=== PATIENT | male | born 1935 | race Caucasian/White ===

== ENCOUNTER 2017-03-15 21:56 | Observation (INO) ==
--- NOTE | 2017-03-15 22:03 | Emergency Department Note ---
Disposition Clinical Impression: Pneumonia, Elevated troponin, Hypoxemia, Frail elderly, Bone lesion, Hyperkalemia Disposition: Admitted As Inpatient Referrals: NO,PCP [Non-Partnered Physician] - Forms: ED Satisfaction Letter General Adult HPI - General Chief complaint: ED Shortness of Breath/Dyspnea Stated complaint: GEN Time Seen by Provider: 03/15/17 22:03 - History of Present Illness HPI Narrative: 81-year-old male reports emergency department complaining of shortness of breath. He was recently seen in the emergency department and signed out AGAINST MEDICAL ADVICE, he had a significantly elevated troponin as well as what appeared to be pneumonitis. The patient reports that he finished his antibiotics, he became more short of breath today EMS was notified and noticed the patient's oxygen saturation was in the 80s on arrival. The patient has home oxygen available but does not wear it all the time and only uses it when he short of breath per his direct report. 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 There is no history of acute dysarthria or confusion. No history of fall or injury. No change in his his neurologic status reported, there is no history of difficulty moving his right upper right lower extremity. There is no history of acute back pain vomiting diarrhea or abdominal pain. The patient is not known to be anticoagulated. EMS did not give the patient a breathing treatment they report when they placed oxygen on his oxygen saturations came up. The patient is not describing chest pain or acute leg swelling. No history of coughing up blood or passing out. - Related Data Home Medications Medication Instructions Recorded Confirmed Aspirin 81 mg PO DAILY 02/27/17 02/27/17 Docusate Sodium [Dok] 100 mg PO BID PRN 02/27/17 02/27/17 Hydroxyzine HCl 25 mg PO BID PRN 02/27/17 02/27/17 Losartan [Cozaar] 25 mg PO DAILY 02/27/17 02/27/17 Polyethylene Glycol 3350 17 gm PO DAILY PRN 02/27/17 02/27/17 [Smoothlax] Propranolol HCl [Innopran Xl] 80 mg PO BID 02/27/17 02/27/17 Simvastatin [Zocor] 40 mg PO HS 02/27/17 02/27/17 Tolnaftate [Antifungal Cream] 1 appl TP BID PRN 02/27/17 02/27/17 Torsemide [Demadex] 10 mg PO QAM PRN 02/27/17 02/27/17 Previous Rx's Medication Instructions Recorded Levofloxacin [Levaquin] 500 mg PO DAILY #6 tablet 02/27/17 Allergies Allergy/AdvReac Type Severity Reaction Status Date / Time Sulfa (Sulfonamide Allergy Hives Verified 03/15/17 22:04 Antibiotics) All systems ED: reviewed and negative except as stated. Past Medical History - Past Medical History Medical history: Reports: asthma, CVA, hypertension Psychiatric history: Reports: no psych history - Social History Smoking Status: Current every day smoker Smokeless Tobacco Status: No Alcohol use: Reports: none Drug use: Reports: none Physical Exam - General Limitations: no limitations General appearance: alert, in no apparent distress - Head Head exam: atraumatic, normocephalic, normal inspection - Eye Eye exam: Present: normal appearance, PERRL, EOMI - ENT ENT exam: normal exam, normal oropharynx, mucous membranes moist, TM's normal bilaterally, normal external ear exam - Neck Neck exam: Present: normal inspection, full ROM, trachea midline. Absent: tenderness - Chest Chest inspection: Present: symmetric chest wall rise. Absent: tenderness - Respiratory Respiratory exam: Present: prolonged expiratory phase. Absent: normal lung sounds bilaterally, respiratory distress, accessory muscle use - Cardiovascular Cardiovascular exam: Present: regular rate, normal rhythm, normal heart sounds - Abdominal Exam Abdominal exam: Present: soft, Non-Tender, normal bowel sounds. Absent: tenderness, distention, guarding, rebound, rigidity, pulsatile mass - Extremities Exam Extremities exam: Present: full ROM, normal capillary refill, other (Chronic venous stasis changes lower extremities). Absent: tenderness, pedal edema, joint swelling, calf tenderness - Expanded Lower Extremity Exam Hip/Pelvis exam: Present: full ROM. Absent: tenderness Upper leg exam: Present: full ROM. Absent: tenderness Knee exam: Present: full ROM. Absent: tenderness Lower leg exam: Present: full ROM. Absent: tenderness Neurovascular/Tendon exam: Present: normal capillary refill. Absent: motor deficit, sensory deficit, tendon deficit, extremity cold to touch, pallor - Back Exam Back exam: Present: full ROM. Absent: tenderness, CVA tenderness (R), CVA tenderness (L), vertebral tenderness - Neurological Exam Neurological exam: Present: alert, oriented X3, CN II-XII intact, motor sensory deficit (Left upper and left lower extremity defects chronic in nature per patient and family, History of CVA) - Psychiatric Psychiatric exam: Present: normal affect, normal mood - Skin Skin exam: Present: warm, dry, intact, normal color. Absent: rash, cyanosis, diaphoresis, erythema, pallor, mottled Course Vital Signs Temperature 98.9 F 03/15/17 21:57 Pulse Rate 61 03/15/17 21:57 Respiratory Rate 16 03/15/17 21:57 Blood Pressure 130/69 03/15/17 21:57 O2 Sat by Pulse Oximetry 94 03/15/17 21:57 Temperature 98.9 F 03/15/17 21:57 Pulse Rate 61 03/15/17 21:57 Respiratory Rate 16 03/15/17 21:57 Blood Pressure 130/69 03/15/17 21:57 O2 Sat by Pulse Oximetry 94 03/15/17 21:57 Oxygen Delivery Oxygen Delivery Nasal Cannula Medical Decision Making - [facility] Narrative Medical decision making narrative: He patient is elderly, he was apparently hypoxemic at his home with a low oxygen saturation the 80s. The patient demonstrates worsening pulmonary disease and there is a description of bony lesion. Further evaluation radiographically as recommended. The patient has an elevated white count but is not tachycardic or febrile. He does not necessarily sepsis criteria IV fluid and IV antibiotics were ordered as well as steroids and breathing medication and aspirin. He has a slight elevation in his troponin which is improved from previous. His EKG is nonacute. Based on his age, worsening lung disease, concerns for potential other Lung or bony pathology, hypoxemia, comorbid neurologic defects/chronic, elevated troponin, and second presentation to the emergency department, I thought it be appropriate to admit the patient to the hospital. I reviewed the case with the hospitalist on-call. - Lab Data Lab results reviewed: Yes I reviewed the patient's lab results. Result diagrams: 03/15/17 22:35 03/15/17 22:35 Lab Results 03/15/17 03/15/17 03/15/17 Range/Units :27 22:35 22:35 WBC 11.2 H (4.3-11.1) K/mcL RBC 5.03 (4.19-5.50) M/mcL Hgb 14.2 (12.9-16.9) g/dL Hct 44.9 (37.5-50.1) % MCV 89.3 (83.0-100.0) fL MCH 28.2 (28.0-33.3) pg MCHC 31.6 (31.6-35.5) g/dL RDW 13.6 (11.5-14.5) % Plt Count 204 (140-400) K/mcL MPV 10.4 (9.4-12.4) fL Immature Gran % 0.8 (0-4) % Seg Neutrophils % 75.0 % Lymphocytes % 12.7 % Monocytes % 8.6 % Eosinophils % 2.2 % Basophils % 0.7 % Neutrophils # 8.4 (1.6-8.9) K/mcL Lymphocytes # 1.4 (0.6-4.6) K/mcL Monocytes # 1.0 (0.0-1.3) K/mcL Eosinophils # 0.3 (0.0-0.6) K/mcL Basophils # 0.1 (0.0-0.2) K/mcL Immature Plt Fraction 6.5 H (1.1-6.1) % PT 10.3 (9.4-12.1) Seconds INR 1.0 APTT 29.7 (26.0-36.0) Seconds Sodium 137 (136-145) mEq/L Potassium 4.8 H (3.5-4.5) mEq/L Chloride 100 (98-109) mEq/L Carbon Dioxide 32 H (19-29) mEq/L BUN 20 (8-26) mg/dL Creatinine 1.19 (0.72-1.25) mg/dL Est GFR ( Amer) > 60 (> 60) Est GFR (Non-Af Amer) 59 L (> 60) BUN/Creatinine Ratio 17 (6-26) Glucose 118 H (70-99) mg/dL Calculated Osmolality 288 (280-300) Lactic Acid (0.5-2.2) mmol/L Calcium 8.4 L (8.6-10.8) mg/dL Total Bilirubin 0.5 (0.2-1.2) mg/dL Direct Bilirubin 0.3 (0.0-0.5) mg/dL Indirect Bilirubin 0.2 (0.0-1.2) mg/dL AST 29 (5-34) Units/L ALT 32 (0-55) Units/L Alkaline Phosphatase 110 (38-126) Units/L Troponin I (0-0.03) ng/mL C-Reactive Protein (Less than 5) mg/L B-Natriuretic Peptide (0-100) pg/mL Serum Total Protein 6.3 (6.0-8.3) g/dL Albumin 2.6 L (3.5-5.0) g/dL Globulin 3.7 H (2.4-3.5) g/dL Albumin/Globulin Ratio 0.7 L (1.1-2.2) 03/15/17 03/15/17 03/15/17 Range/Units 22:35 22:35 22:35 WBC (4.3-11.1) K/mcL RBC (4.19-5.50) M/mcL Hgb (12.9-16.9) g/dL Hct (37.5-50.1) % MCV (83.0-100.0) fL MCH (28.0-33.3) pg MCHC (31.6-35.5) g/dL RDW (11.5-14.5) % Plt Count (140-400) K/mcL MPV (9.4-12.4) fL Immature Gran % (0-4) % Seg Neutrophils % % Lymphocytes % % Monocytes % % Eosinophils % % Basophils % % Neutrophils # (1.6-8.9) K/mcL Lymphocytes # (0.6-4.6) K/mcL Monocytes # (0.0-1.3) K/mcL Eosinophils # (0.0-0.6) K/mcL Basophils # (0.0-0.2) K/mcL Immature Plt Fraction (1.1-6.1) % PT (9.4-12.1) Seconds INR APTT (26.0-36.0) Seconds Sodium (136-145) mEq/L Potassium (3.5-4.5) mEq/L Chloride (98-109) mEq/L Carbon Dioxide (19-29) mEq/L BUN (8-26) mg/dL Creatinine (0.72-1.25) mg/dL Est GFR ( Amer) (> 60) Est GFR (Non-Af Amer) (> 60) BUN/Creatinine Ratio (6-26) Glucose (70-99) mg/dL Calculated Osmolality (280-300) Lactic Acid 0.9 (0.5-2.2) mmol/L Calcium (8.6-10.8) mg/dL Total Bilirubin (0.2-1.2) mg/dL Direct Bilirubin (0.0-0.5) mg/dL Indirect Bilirubin (0.0-1.2) mg/dL AST (5-34) Units/L ALT (0-55) Units/L Alkaline Phosphatase (38-126) Units/L Troponin I 0.05 H* (0-0.03) ng/mL C-Reactive Protein (Less than 5) mg/L B-Natriuretic Peptide 110 H (0-100) pg/mL Serum Total Protein (6.0-8.3) g/dL Albumin (3.5-5.0) g/dL Globulin (2.4-3.5) g/dL Albumin/Globulin Ratio (1.1-2.2) 03/15/17 Range/Units 22:35 WBC (4.3-11.1) K/mcL RBC (4.19-5.50) M/mcL Hgb (12.9-16.9) g/dL Hct (37.5-50.1) % MCV (83.0-100.0) fL MCH (28.0-33.3) pg MCHC (31.6-35.5) g/dL RDW (11.5-14.5) % Plt Count (140-400) K/mcL MPV (9.4-12.4) fL Immature Gran % (0-4) % Seg Neutrophils % % Lymphocytes % % Monocytes % % Eosinophils % % Basophils % % Neutrophils # (1.6-8.9) K/mcL Lymphocytes # (0.6-4.6) K/mcL Monocytes # (0.0-1.3) K/mcL Eosinophils # (0.0-0.6) K/mcL Basophils # (0.0-0.2) K/mcL Immature Plt Fraction (1.1-6.1) % PT (9.4-12.1) Seconds INR APTT (26.0-36.0) Seconds Sodium (136-145) mEq/L Potassium (3.5-4.5) mEq/L Chloride (98-109) mEq/L Carbon Dioxide (19-29) mEq/L BUN (8-26) mg/dL Creatinine (0.72-1.25) mg/dL Est GFR ( Amer) (> 60) Est GFR (Non-Af Amer) (> 60) BUN/Creatinine Ratio (6-26) Glucose (70-99) mg/dL Calculated Osmolality (280-300) Lactic Acid (0.5-2.2) mmol/L Calcium (8.6-10.8) mg/dL Total Bilirubin (0.2-1.2) mg/dL Direct Bilirubin (0.0-0.5) mg/dL Indirect Bilirubin (0.0-1.2) mg/dL AST (5-34) Units/L ALT (0-55) Units/L Alkaline Phosphatase (38-126) Units/L Troponin I (0-0.03) ng/mL C-Reactive Protein 10 H (Less than 5) mg/L B-Natriuretic Peptide (0-100) pg/mL Serum Total Protein (6.0-8.3) g/dL Albumin (3.5-5.0) g/dL Globulin (2.4-3.5) g/dL Albumin/Globulin Ratio (1.1-2.2) - Radiology Data Radiology results reviewed: Yes I reviewed the patient's radiology results.
[2017-03-15] MEDS ORDERED: methylPREDNISolone 125 MG/2 ML VIAL IVP ONE (22:35)
[2017-03-15] MEDS ORDERED: Ipratropium/Albuterol Neb 3 ML IH ONE (22:36)
[2017-03-15 22:57] LABS: Basophils # 0.1 K/mcL (0.0-0.2); Basophils % 0.7 %; Eosinophils # 0.3 K/mcL (0.0-0.6); Eosinophils % 2.2 %; Hematocrit 44.9 % (37.5-50.1); Hemoglobin 14.2 g/dL (12.9-16.9); Immature Granulocytes % 0.8 % (0-4); Immature Platelets 6.5 % (1.1-6.1); Lymphocytes # 1.4 K/mcL (0.6-4.6); Lymphocytes % 12.7 %; Mean Corpuscular HGB Conc 31.6 g/dL (31.6-35.5); Mean Corpuscular Hemoglobin 28.2 pg (28.0-33.3); Mean Corpuscular Volume 89.3 fL (83.0-100.0); Mean Platelet Volume 10.4 fL (9.4-12.4); Monocytes % 8.6 %; Neutrophils # 8.4 K/mcL (1.6-8.9); Platelet Count 204 K/mcL (140-400); Red Blood Count 5.03 M/mcL (4.19-5.50); Red Cell Distribution Width 13.6 % (11.5-14.5)
[2017-03-15 22:59] LABS: Prothrombin Time 10.3 Seconds (9.4-12.1)
[2017-03-15 23:01] LABS: Activated Partial Thrombo Time 29.7 Seconds (26.0-36.0)
[2017-03-15 23:13] LABS: Alanine Aminotransferase 32 Units/L (0-55); Albumin 2.6 g/dL (3.5-5.0); Albumin/Globulin Ratio 0.7 (1.1-2.2); Alkaline Phosphatase 110 Units/L (38-126); Aspartate Amino Transferase 29 Units/L (5-34); BUN/Creatinine Ratio 17 (6-26); Bilirubin,Direct 0.3 mg/dL (0.0-0.5); Bilirubin,Indirect 0.2 mg/dL (0.0-1.2); Bilirubin,Total 0.5 mg/dL (0.2-1.2); Blood Urea Nitrogen 20 mg/dL (8-26); Calcium 8.4 mg/dL (8.6-10.8); Carbon Dioxide 32 mEq/L (19-29); Chloride 100 mEq/L (98-109); Globulin 3.7 g/dL (2.4-3.5); Glucose 118 mg/dL (70-99); Osmolality,Calculated 288 (280-300); Potassium 4.8 mEq/L (3.5-4.5); Sodium 137 mEq/L (136-145); Total Protein 6.3 g/dL (6.0-8.3); eGFR For African Americans > 60 (> 60); eGFR For Non-African Americans 59 (> 60)
[2017-03-15] MEDS ORDERED: Aspirin 325 MG TABLET PO ONE (23:39)
[2017-03-16] MEDS ORDERED: Famotidine 20 MG/2 ML VIAL IVP ONE (00:09)
[2017-03-16] MEDS ORDERED: Levofloxacin 750 MG/150 ML 750 MG/150 ML BAG IVPB ONE (00:10)
[2017-03-16] MEDS ORDERED: 0.9 % Sodium Chloride 1,000 ML IVC ONE (00:30)
--- NOTE | 2017-03-16 01:15 | Internal Med History&Physical ---
<Quinn Field - Last Filed: 03/16/17 04:45> Date of Encounter: 03/16/17 Time of Encounter: 01:15 Assessment and Plan (1) Acute respiratory failure Current visit: Yes Status: Acute -see below -Patient resting comfortably in bed. Feels back at baseline after duoneb/oxygen -Patient did get dose of abx, steroids in ED. PLan -Incentive spirometry -Duoneb scheduled -Continue NC. Keep oxygen >90% Qualifiers: Respiratory failure complication: hypoxia Qualified Code(s): J96.01 - Acute respiratory failure with hypoxia (2) CHF exacerbation Current visit: Yes Status: Acute CHF vs pneumonia -Patient has crackles and diminished breath sounds. Current smoker. No LE pitting edema because patient is bedbound the past 4 years. There is mild sacral edema. -CXR shows worsening opacities, pneumonia vs effusion -Most likely CHF:Patient has non productive cough, no F/N/V/sick contacts. Not tachy, WBC 11.2. Symptoms improved with oxygen and duoneb. -Denies previous ECHO. Rheumatic fever x 2 -Will get procal. If elevated, may be inflammatory process, such as pneumonia, contributing to CHF. -Will start lasix -Patient states he is going to leave AMA tomorrow. Explained to patient its important to stay and be treated. present in room. Plan -Procal, ECHO, Lasix -Don't give IV fluids -Normal diet Qualifiers: Congestive heart failure type: unspecified congestive heart failure type Qualified Code(s): I50.9 - Heart failure, unspecified (3) Hyperkalemia Current visit: Yes Status: Acute -Possibly due to hemolysis. -Will redraw and evaluate. (4) Elevated troponin Current visit: Yes Status: Acute -Trending down from last admission. However, will get one more to evaluate. -Patient denies CP, previous history of stent, HI. (5) Asthma Current visit: Yes Status: Chronic will order duoneb scheduled Qualifiers: Asthma severity: unspecified severity Asthma complication type: uncomplicated Qualified Code(s): J45.909 - Unspecified asthma, uncomplicated (6) Hypertension Current visit: Yes Status: Acute will restart home medications Qualifiers: Hypertension type: unspecified secondary hypertension Qualified Code(s): I15.9 - Secondary hypertension, unspecified; I15 - Secondary hypertension (7) Frail elderly Current visit: Yes Status: Acute Internal Medicine - H&P: HPI Chief complaint: SOB Admitted From: Emergency Dept Plans for Post Hospital Care: Home History of present illness: Mr. Alegria is a pleasant 81 year old male, PMH Asthma, CVA, HTN (denies COPD, CHF), admitted for shortness of breath. Patient left AMA earlier this month because he didn't want to be admitted for pneumonia, discharged home with Levaquin mg for 6 days. He completed his abx and felt better. A few days ago, patient started getting more SOB and developed a non productive cough. took patients O2 and was 80%. Squad called and placed patient on oxygen and gave a breathing treatment. Patient's symptoms improved. Currently, patient feels back at baseline. Still has non productive cough. Denies N/V/F/abdominal pain. Did have diarrhea yesterday, but no longer does. States that he would like to go home now and plans to leave AMA tomorrow. at bedside. Code status discussed. Does NOT want to be temporarily intubated at anypoint. He is not ambulatory nor uses a wheelchair due to back pain/previous back surgery 4 years ago. rheumatic fever x 2 Past Med Surg Social Fam HX - Past Medical History Medical history: asthma, CVA, hypertension, other (rheumatic fever x 2) Psychiatric history: no psych history - Past Surgical History Surgical History: other (lumbar x 2) - Social History Smoking Status: Current every day smoker Smokeless Tobacco Status: No Alcohol use: none Drug use: none - Additional Family History Additional family history: Adopted. No contact with family. Internal Medicine - H&P: Meds Aspirin 81 mg PO DAILY 02/27/17 [History] Hydroxyzine HCl 25 mg PO BID PRN 02/27/17 [History] Losartan [Cozaar] 25 mg PO DAILY 02/27/17 [History] Propranolol HCl [Innopran Xl] 80 mg PO BID 02/27/17 [History] Simvastatin [Zocor] 40 mg PO HS 02/27/17 [History] Albuterol Neb [Proventil Neb] 2.5 mg IH TID PRN 03/16/17 [History] Docusate [Colace] 100 mg PO BID PRN 03/16/17 [History] Oxygen 1 each .ROUTE AD 03/16/17 [History] Tolnaftate [Anti-Fungal] 1 appl TP DAILY PRN 03/16/17 [History] Torsemide [Demadex] 10 mg PO QAM PRN 03/16/17 [History] Allergies Sulfa (Sulfonamide Antibiotics) Allergy (Verified 03/15/17 22:04) Hives All Systems PM: A 10-system review of systems was performed and is negative for pertinent findings except as documented above in the HPI. - Constitutional Constitutional: no chills, no fever(s), no night sweats - Cardiovascular Cardiovascular ROS IM: no chest pain, no diaphoresis, no dyspnea, no lightheadedness, no palpitations, no syncope - Respiratory Respiratory: cough, no hemoptysis, no pain with cough - Gastrointestinal Gastrointestinal: no abdominal pain, no diarrhea, no hematemesis, no hematochezia, no melena, no nausea, no vomiting - Neurological Neurological ROS: no confusion, no convulsions, no focal weakness, no numbness, no tingling, no tremor(s) - Constitutional Vitals: Temp Pulse Resp BP Pulse Ox 98.9 F 61 16 104/50 96 03/15/17 21:57 03/16/17 00:28 03/16/17 01:10 03/16/17 01:10 03/16/17 00:37 General appearance: Present: mild distress, A&O X 3 - Respiratory Respiratory exam: Present: decreased breath sounds, rhonchi, wheezes - Cardiovascular Cardiovascular exam: Present: irregular rhythm. Absent: diastolic murmur, systolic murmur - GI/Abdominal GI/Abdominal exam: Present: normal bowel sounds, soft, no peritoneal signs. Absent: distended, tenderness - Neurological Exam Neurological exam: Present: oriented X3 - Psychiatric Psychiatric exam: Present: normal affect, normal mood - Skin Skin exam: Absent: normal color Additional comments: toe fungus? thin skin, dry, purple "spots". Discolor (yellow, brown),Unhealthy looking skin. No edema in legs. - Other Additional findings: -Mild sacral edema Internal Med - H&P Results - Labs CBC & Chem 7: 03/15/17 22:35 03/15/17 22:35 <Iván Garcia - Last Filed: 03/16/17 19:18> Date of Encounter: 03/16/17 Internal Medicine - H&P: HPI History of present illness: Mr. Alegria is a 81 year old male All Systems PM: A 10-system review of systems was performed and is negative for pertinent findings except as documented above in the HPI. - Constitutional Vitals: Temp Pulse Resp BP Pulse Ox 97.7 F 62 16 151/83 94 03/16/17 19:00 03/16/17 19:00 03/16/17 19:00 03/16/17 19:00 03/16/17 19:00 - Head Head exam: Present: atraumatic, normocephalic - Eye Eye exam: Present: EOMI. Absent: conjunctival injection, conjuntiva pink Pupils: Present: PERRL - Neurological Exam Neurological exam: Present: CN II-XII intact, no focal deficits Internal Med - H&P Results - Labs CBC & Chem 7: 03/16/17 04:27 03/16/17 04:27 Labs: Short CBC 03/16/17 Range/Units 04:27 WBC 10.6 (4.3-11.1) K/mcL Hgb 13.7 (12.9-16.9) g/dL Hct 43.4 (37.5-50.1) % Plt Count 164 (140-400) K/mcL Neutrophils # 9.5 H (1.6-8.9) K/mcL BMP 03/16/17 04:27 Sodium 138 Potassium 5.1 H Chloride 104 Carbon Dioxide 27 BUN 18 Creatinine 1.07 Glucose 142 H Calcium 8.0 L Cardiac Enzymes 03/16/17 Range/Units 04:27 Troponin I 0.04 H* (0-0.03) ng/mL - EKG Data -: EKG Interpreted by Myself - Diagnostic Studies Chest x-ray Status: image reviewed by me - Attending Attestation I personally interviewed and examined this patient and my medical decision- making was reviewed with the Resident Physician. I agree with the documented findings, disposition and treatment plan as described.
[2017-03-16] MEDS ORDERED: Naloxone 0.4 MG/ML INJ IVP PRN (01:54)
[2017-03-16] MEDS: Ipratropium/Albuterol Neb 3 ML IH SCH ×4 (03:39→21:00)
[2017-03-16 04:49] LABS: Basophils # 0.1 K/mcL (0.0-0.2); Basophils % 0.6 %; Eosinophils # 0.1 K/mcL (0.0-0.6); Eosinophils % 1.1 %; Hematocrit 43.4 % (37.5-50.1); Hemoglobin 13.7 g/dL (12.9-16.9); Immature Granulocytes % 0.8 % (0-4); Lymphocytes # 0.7 K/mcL (0.6-4.6); Lymphocytes % 6.5 %; Mean Corpuscular HGB Conc 31.6 g/dL (31.6-35.5); Mean Corpuscular Hemoglobin 28.5 pg (28.0-33.3); Mean Corpuscular Volume 90.2 fL (83.0-100.0); Mean Platelet Volume 10.8 fL (9.4-12.4); Monocytes # 0.2 K/mcL (0.0-1.3); Monocytes % 1.8 %; Neutrophils # 9.5 K/mcL (1.6-8.9); Platelet Count 164 K/mcL (140-400); Red Blood Count 4.81 M/mcL (4.19-5.50); Red Cell Distribution Width 13.5 % (11.5-14.5); Segmented Neutrophils % 89.2 %
[2017-03-16 05:07] LABS: BUN/Creatinine Ratio 17 (6-26); Blood Urea Nitrogen 18 mg/dL (8-26); Carbon Dioxide 27 mEq/L (19-29); Chloride 104 mEq/L (98-109); Glucose 142 mg/dL (70-99); Magnesium 2.6 mg/dL (1.6-2.6); Osmolality,Calculated 290 (280-300); Phosphorous 3.1 mg/dL (2.3-4.7); Potassium 5.1 mEq/L (3.5-4.5); Sodium 138 mEq/L (136-145); eGFR For African Americans > 60 (> 60); eGFR For Non-African Americans > 60 (> 60)
[2017-03-16] MEDS ORDERED: *HR* Enoxaparin 30 MG/0.3 ML SYRINGE SQ SCH ×2 (07:00→09:00)
[2017-03-16] MEDS ORDERED: Piperacillin/Tazobactam 3.375 GM in D5% in Water (Mini-Bag+) 100 ML IVPB SCH (08:00)
[2017-03-16] MEDS: Furosemide 40 MG/4 ML VIAL IVP SCH (10:45)
[2017-03-16] MEDS: hydrOXYzine pamoate 25 MG CAPSULE PO SCH ×2 (10:46→20:16)
--- NOTE | 2017-03-16 11:20 | ECHO - Doppler Report ---
Echocardiogram Name: Mitesh Alegria Date of Study: 03/16/2017 Date: 1935 Ht: 70.0 in Medical Record#: [id number] Age: 81 Wt: 175.0 lb Gender: Male BSA: 1.97 Order #: [id number] Location: [facility] Room #: 2A22 Reading Physician: Lloyd Stevens DO, [place] PURCELL Principal Process Engineer: Josefina Camargo Ordering Physician: Quinn Field DO Primary Physician: Kizzy Pena CNP Indications: Shortness of breath Impressions: Technically sub-optimal due to poor echocardiographic windows. LVEF 60-65%. Normal LV chamber size and function. Mild to moderate concentric left ventricular hypertrophy. Mild left ventricular diastolic dysfunction. Normal right ventricular structure and function. No evidence of pulmonary hypertension. No significant valvular dysfunction. Left Ventricular Wall Motion: Rest Echo Findings All wall segments showed normal motion. Findings: Study Quality * Technically sub-optimal due to poor echocardiographic windows. ECG Findings * Normal sinus rhythm. Left Ventricle * LVEF 60-65%. * Normal LV chamber size and function. * Mild to moderate concentric left ventricular hypertrophy. * Mild left ventricular diastolic dysfunction. Right Ventricle * Normal right ventricular structure and function. Left Atrium * Mildly dilated left atrium. Right Atrium * Normal right atrial size. Interatrial Septum * Interatrial septum not well evaluated. Aortic Valve * Trileaflet aortic valve. * Mildly sclerotic aortic valve leaflets. * No aortic regurgitation. * No aortic stenosis. Mitral Valve * Mild mitral annular calcification * No mitral stenosis. * Trace mitral regurgitation. Tricuspid Valve * Normal tricuspid valve structure and function. * Trace tricuspid regurgitation. * No evidence of pulmonary hypertension. Pulmonic Valve * Pulmonic valve is not well visualized. * No pulmonic regurgitation. Aorta * Normally sized aortic root. Pericardium * The pericardium appears normal. IVC * Normal IVC dimensions and inspiratory collapse. Pulmonary Artery * Normal visualized portions of the main pulmonary artery. History Hypertension Hypercholesteremia History of Smoking Years Packs 0.5 Measurements: BP: 120/ 66 2D Normal Values RVIDd: 2.80 cm <2.7 cm IVSd: 1.50 cm 0.6 - 1.0 cm LVIDd: 4.00 cm 3.7 - 5.6 cm LVPWd: 1.50 cm 0.6 - 1.1 cm LVIDs: 2.80 cm 1.5 - 3.6 cm AO: 3.00 cm < 4.0 cm LA: 3.70 cm 2.0 - 4.0cm %FS: 30.00 cm >25 % LA volume: 23 Mitral Valve Peak E:.68 m/sec Peak A:.77 m/sec E/A Ratio:0.9 Peak E' Lat Reji:4.29 cm/s Peak E' Med Reji:3.51 cm/s E/E' Lat Ratio:15.9 E/E' Med Ratio:19.4 Tricuspid Valve TV Regurg Peak Grad: 4.00mmHg TV Regurg Peak Reji: 1.00m/sec Updated by Lloyd Stevens DO, FACJose Roberto, GA, MARIVEL on 03/16/2017 11:14:13 AM electronically signed on 03/16/2017 11:15:22 AM with status of [employer] [place]: 1=Normal, 2=Hypokinesis, 3=Akinesis, 4=Dyskinesis, 5=Aneurysmal, 6=Hyperkinetic, X=Not Visualized (Blank)=Missing
--- NOTE | 2017-03-16 17:33 | Event Note ---
Date of Encounter: 03/16/17 Time of Encounter: 17:32 Patient is a 81-year-old male admitted for acute respiratory failure secondary to CHF decompensation. She was seen and examined with family present at bedside. Patient reports feeling better since admission. Follow-up 2-D echo, continue diuretic support, monitor O2 sat, O2 supplementation as needed, monitor strict I's/O's, monitor daily weight, fluid restriction diet.
--- NOTE | 2017-03-16 17:50 | Electrocardiograph Report ---
[address] [address] Test Date: 2017-03-15 Pat Name: Mitesh Alegria Department: 105 Room: 2A22 Gender: M Triage Specialist: : 1935 Requested By: Harjit Palacios Order Number: [id number] Reading MD: Princess Rosales Measurements Intervals [place] Rate: 57 P: 31 GA: 223 QRS: -40 QRSD: 94 T: 53 QT: 432 QTc: 427 Interpretive Statements SINUS BRADYCARDIA WITH FIRST DEGREE AV BLOCK MARKED LEFT AXIS DEVIATION [QRS AXIS < -30] Electronically Signed On 03-16-2017 17:49:09 EDT by Princess Rosales
[2017-03-17] MEDS ORDERED: Haloperidol Lactate 5 MG/ML VIAL IVP PRN (04:29)
[2017-03-17] MEDS ORDERED: Haloperidol Lactate 5 MG/ML VIAL IVP ONE (04:29)
[2017-03-17] MEDS: Ipratropium/Albuterol Neb 3 ML IH SCH ×4 (04:33→22:20)
[2017-03-17] MEDS: *HR* Enoxaparin 40 MG/0.4 ML SYRINGE SQ SCH (06:48)
[2017-03-17 08:13] LABS: Basophils % 0.1 %; Hematocrit 40.4 % (37.5-50.1); Hemoglobin 12.9 g/dL (12.9-16.9); Immature Granulocytes % 0.7 % (0-4); Immature Platelets 6.2 % (1.1-6.1); Lymphocytes # 0.8 K/mcL (0.6-4.6); Lymphocytes % 5.4 %; Mean Corpuscular HGB Conc 31.9 g/dL (31.6-35.5); Mean Corpuscular Hemoglobin 28.3 pg (28.0-33.3); Mean Corpuscular Volume 88.6 fL (83.0-100.0); Mean Platelet Volume 10.6 fL (9.4-12.4); Monocytes # 1.2 K/mcL (0.0-1.3); Monocytes % 7.8 %; Neutrophils # 12.6 K/mcL (1.6-8.9); Platelet Count 170 K/mcL (140-400); Red Blood Count 4.56 M/mcL (4.19-5.50); Red Cell Distribution Width 13.6 % (11.5-14.5)
[2017-03-17 08:24] LABS: Magnesium 2.5 mg/dL (1.6-2.6); Phosphorous 2.3 mg/dL (2.3-4.7)
[2017-03-17 08:25] LABS: Calcium 8.1 mg/dL (8.6-10.8); Potassium 4.6 mEq/L (3.5-4.5)
[2017-03-17] MEDS ORDERED: Levofloxacin 750 MG/150 ML 750 MG/150 ML BAG IVPB SCH ×2 (09:00→13:00)
[2017-03-17] MEDS: Thiamine (B-1) 100 MG TABLET PO SCH (09:47)
[2017-03-17] MEDS: Aspirin 81 MG TAB.CHEW PO SCH (09:47)
[2017-03-17] MEDS: hydrOXYzine pamoate 25 MG CAPSULE PO SCH ×2 (09:47→23:00)
[2017-03-17] MEDS: Vitamin B Complex/Vit C/Vit E 1 EACH TABLET PO SCH (09:47)
[2017-03-17] MEDS: Folic Acid 1 MG TABLET PO SCH (09:47)
[2017-03-17] MEDS: Furosemide 40 MG/4 ML VIAL IVP SCH (09:48)
--- NOTE | 2017-03-17 10:47 | Internal Med Progress Note ---
Date of Encounter: 03/17/17 Time of Encounter: 10:39 - Assessment and plan (1) Acute respiratory failure Current Visit: Yes Status: Acute Assessment and plan: Likely secondary to CHF decompensation Newly diagnosed CHF 2D echo reported pEFHF with EF of 60-65% with mild LV diastolic dysfunction patient responding appropriately to diuretic therapy Will switch to PO diuretics given PALOMO patient may also have an underlying component of COPD given smoking history Patient reported of using home oxygen but does not know the diagnosis for it's use Currently saturating well on nasal cannula, will continue continue to monitor O2 saturation continue to monitor daily weights, I/Os fluid restriction diet Initiate discharge planning, if remains stable overnight, likely d/c in am with home health Qualifiers: Respiratory failure complication: hypoxia Qualified Code(s): J96.01 - Acute respiratory failure with hypoxia (2) CHF exacerbation Current Visit: Yes Status: Acute Assessment and plan: plan as listed above Qualifiers: Congestive heart failure type: diastolic Qualified Code(s): I50.33 - Acute on chronic diastolic (congestive) heart failure (3) Leukocytosis, unspecified Current Visit: Yes Status: Acute Assessment and plan: No clinical signs of infectious etiology present, afebrile CXR reviewed, will obtain CT chest and UA to r/o any source of infectious etiology that may also be contributing to patient's agitation however patient may have a component of sundowning phenomenon, therefore will start Seroquel 12.5mg PO qHS will closely monitor off antibiotics at this time. Qualifiers: Leukocytosis type: unspecified Qualified Code(s): D72.829 - Elevated white blood cell count, unspecified (4) Acute kidney injury Current Visit: Yes Status: Acute Assessment and plan: Likely secondary to diuretic therapy Will switch to PO Lasix with reduced dose will closely monitor renal function Will HOld Losartan at this time. (5) Asthma Current Visit: Yes Status: Chronic Qualifiers: Asthma severity: unspecified severity Asthma complication type: uncomplicated Qualified Code(s): J45.909 - Unspecified asthma, uncomplicated (6) Hyperkalemia Current Visit: Yes Status: Acute Assessment and plan: improving will continue to monitor (7) Hypertension Current Visit: Yes Status: Acute Assessment and plan: BP within acceptable range continue home medications Qualifiers: Hypertension type: unspecified secondary hypertension Qualified Code(s): I15.9 - Secondary hypertension, unspecified; I15 - Secondary hypertension (8) Smoker Current Visit: Yes Status: Chronic Assessment and plan: smoking cessation counseling provided patient not ready to quit at this time, states he only smokes 1-2 cigs/day and doesn't consider that to be a problem refused nicotine replacement therapy (9) DVT prophylaxis Current Visit: Yes Status: Acute Assessment and plan: Lovenox SQ (10) Frail elderly Current Visit: Yes Status: Acute Assessment and plan: Patient and family does not want rehab and would like to be discharged to home with continuation of home health once stable - Subjective Interval history: Patient seen and examined at bedside. Patient reported to be agitated overnight requiring one dose of Haldol. Reports of breathing comfortably and in no acute distress at this time. As per patient's (Leora Alegria), patient is bed bound at baseline and uses a urinal and bed fair at home. They already have home health services at home and do not wish to go to [facility] after discharge. - Constitutional Vitals: Temp Pulse Resp BP Pulse Ox 97.1 F L 61 18 91/52 98 03/17/17 07:37 03/17/17 07:37 03/17/17 07:37 03/17/17 07:37 03/17/17 07:37 General appearance: Present: A&O X 3, no acute distress - Head Head exam: Present: atraumatic, normocephalic - Eye Eye exam: Present: normal appearance, conjuntiva pink, sclera anicteric - Respiratory Respiratory exam: Present: CTAB. Absent: respiratory distress, wheezes - Cardiovascular Cardiovascular exam: Present: RRR, +S1, +S2. Absent: diastolic murmur, gallop, rubs, systolic murmur - GI/Abdominal GI/Abdominal exam: Present: normal bowel sounds, soft, no peritoneal signs. Absent: distended, tenderness - Extremities Exam Extremities exam: Present: warm, radial pulses palpable and symetrical. Absent : pedal edema Additional comments: Onichomycosis in bilateral toes, poor hygiene - Neurological Exam Neurological exam: Present: alert Internal Medicine: Result - Labs CBC & Chem 7: 03/17/17 08:02 03/17/17 08:02 Labs: Short CBC 03/17/17 Range/Units 08:02 WBC 14.7 H (4.3-11.1) K/mcL Hgb 12.9 (12.9-16.9) g/dL Hct 40.4 (37.5-50.1) % Plt Count 170 (140-400) K/mcL Neutrophils # 12.6 H (1.6-8.9) K/mcL BMP 03/17/17 08:02 Sodium 136 Potassium 4.6 H Chloride 102 Carbon Dioxide 28 BUN 25 Creatinine 1.40 H Glucose 182 H Calcium 8.1 L - ABG Interpretation ABG results: PT/INR, D-dimer PT 10.3 Seconds (9.4-12.1) 03/15/17 22:27 Consult Discharge Plan - Plan Referrals: Kizzy Pena, [employer] [employer] [Primary Care Provider] -
[2017-03-17 14:13] LABS: Bilirubin,Urine Negative (Negative); Blood,Urine Negative (Negative); Clarity,Urine Clear (Clear); Color,Urine Yellow (Yellow); Glucose,Urine (UA) Normal (Normal); Ketones,Urine Negative (Negative); Leukocyte Esterase,Urine Negative (Negative); Nitrite,Urine Negative (Negative); PH,Urine 6.5 pH Units (5.0-8.0); Protein,Urine Negative (Neg-Trace); Urobilinogen,Urine Normal (Normal)
[2017-03-17] MEDS ORDERED: 0.9 % Sodium Chloride 250 ML ONE (17:33)
[2017-03-17] MEDS: 0.9 % Sodium Chloride 250 ML IVC ONE ×2 (17:34→18:57)
[2017-03-18] MEDS: Ipratropium/Albuterol Neb 3 ML IH SCH ×2 (05:00→11:06)
[2017-03-18] MEDS: *HR* Enoxaparin 40 MG/0.4 ML SYRINGE SQ SCH (05:30)
[2017-03-18 06:01] LABS: BUN/Creatinine Ratio 22 (6-26); Blood Urea Nitrogen 29 mg/dL (8-26); Calcium 8.3 mg/dL (8.6-10.8); Carbon Dioxide 30 mEq/L (19-29); Chloride 102 mEq/L (98-109); Glucose 87 mg/dL (70-99); Osmolality,Calculated 295 (280-300); Sodium 140 mEq/L (136-145); eGFR For African Americans > 60 (> 60); eGFR For Non-African Americans 53 (> 60)
[2017-03-18 06:02] LABS: Basophils % 0.2 %; Eosinophils % 0.2 %; Hemoglobin 12.9 g/dL (12.9-16.9); Immature Granulocytes % 0.7 % (0-4); Lymphocytes % 7.8 %; Magnesium 2.2 mg/dL (1.6-2.6); Mean Corpuscular HGB Conc 32.3 g/dL (31.6-35.5); Mean Corpuscular Hemoglobin 29.1 pg (28.0-33.3); Mean Corpuscular Volume 90.1 fL (83.0-100.0); Mean Platelet Volume 10.8 fL (9.4-12.4); Monocytes # 1.1 K/mcL (0.0-1.3); Monocytes % 8.5 %; Neutrophils # 10.7 K/mcL (1.6-8.9); Platelet Count 161 K/mcL (140-400); Red Blood Count 4.44 M/mcL (4.19-5.50); Red Cell Distribution Width 13.9 % (11.5-14.5); Segmented Neutrophils % 82.6 %
[2017-03-18 06:09] LABS: Potassium 4.6 mEq/L (3.5-4.5)
[2017-03-18] MEDS: Folic Acid 1 MG TABLET PO SCH (08:48)
[2017-03-18] MEDS: hydrOXYzine pamoate 25 MG CAPSULE PO SCH (08:48)
[2017-03-18] MEDS: Vitamin B Complex/Vit C/Vit E 1 EACH TABLET PO SCH (08:48)
[2017-03-18] MEDS: Thiamine (B-1) 100 MG TABLET PO SCH (08:49)
[2017-03-18] MEDS: Aspirin 81 MG TAB.CHEW PO SCH (08:49)
[2017-03-18] MEDS ORDERED: Furosemide 40 MG TABLET PO SCH (09:00)
--- NOTE | 2017-03-18 10:37 | Discharge Summary ---
Date of Encounter: 03/18/17 Time of Encounter: 10:36 - Discharge Diagnosis (1) Acute respiratory failure Priority: Primary Status: Resolved Qualifiers: Respiratory failure complication: hypoxia Qualified Code(s): J96.01 - Acute respiratory failure with hypoxia (2) CHF exacerbation Priority: Primary Status: Acute Qualifiers: Congestive heart failure type: diastolic Qualified Code(s): I50.33 - Acute on chronic diastolic (congestive) heart failure (3) Leukocytosis, unspecified Priority: Secondary Status: Acute Qualifiers: Leukocytosis type: unspecified Qualified Code(s): D72.829 - Elevated white blood cell count, unspecified (4) Acute kidney injury Priority: Secondary Status: Acute (5) Asthma Priority: Secondary Status: Chronic Qualifiers: Asthma severity: unspecified severity Asthma complication type: uncomplicated Qualified Code(s): J45.909 - Unspecified asthma, uncomplicated (6) Hyperkalemia Priority: Secondary Status: Acute (7) Hypertension Priority: Secondary Status: Chronic Qualifiers: Hypertension type: unspecified secondary hypertension Qualified Code(s): I15.9 - Secondary hypertension, unspecified; I15 - Secondary hypertension (8) Smoker Priority: Secondary Status: Chronic (9) DVT prophylaxis Priority: Secondary Status: Acute (10) Frail elderly Priority: Secondary Status: Acute Comments: patient refused ECF or physical therapy participation while hospitalized reports of having home health and would like to be discharged to home with home health services. - Discharge Medications Prescriptions: Furosemide [Lasix] 20 mg PO DAILY #30 tablet Levofloxacin [Levaquin] 500 mg PO DAILY #6 tablet Home Medications: Aspirin 81 mg PO DAILY 02/27/17 [History] Hydroxyzine HCl 25 mg PO BID PRN 02/27/17 [History] Losartan [Cozaar] 25 mg PO DAILY 02/27/17 [History] Propranolol HCl [Innopran Xl] 80 mg PO BID 02/27/17 [History] Simvastatin [Zocor] 40 mg PO HS 02/27/17 [History] Albuterol Neb [Proventil Neb] 2.5 mg IH TID PRN 03/16/17 [History] Docusate [Colace] 100 mg PO BID PRN 03/16/17 [History] Oxygen 1 each .ROUTE AD 03/16/17 [History] Tolnaftate [Anti-Fungal] 1 appl TP DAILY PRN 03/16/17 [History] Furosemide [Lasix] 20 mg PO DAILY #30 tablet 03/18/17 [Rx] Levofloxacin [Levaquin] 500 mg PO DAILY #6 tablet 03/18/17 [Rx] Allergies/Adverse Reactions: Allergies Sulfa (Sulfonamide Antibiotics) Allergy (Verified 03/15/17 22:04) Hives Procedures/tests Complete & Pending: Procedures Performed prior 72 hours Category Date Time Status CT chest w/o contrast [CT chest wo con] [CT] Routine Cat Scan 03/17/17 10:50 Completed EV echocardiogram Routine Y 03/16/17 06:00 Completed Date of admission: 03/16/17 02:16 Primary care physician: Kizzy Pena CNP Consults: 03/17/17 10:35 Consult to Physical Therapy [CONS] Stat Comment: Evaluate, develop and implement POC Discharging clinician: Vero Woods Anticipated date of discharge: 03/18/17 - Patient Status Disposition: Home Health Service Condition: Fair Functional capacity at discharge: bed bound Overall status at discharge: patient is back to baseline - Ambulatory Orders Ambulatory Orders: Basic Metabolic Panel [CHEM] Time Frame: 1 Week, Facility: [facility], Location: Lab - Discharge Instructions Follow Up With: Kizzy Pena CNP [Primary Care Provider] - (Web requesed 03-18-17) Additional Instructions: Please follow-up with your primary care physician within 5 days after your discharge from the hospital. Please obtain the prescribed lab work before your appointment with your primary care physician. Please continue to take oral antibiotics as prescribed. Your home medication of torsemide has been discontinued and he has been started on furosemide 20 mg once a day. Please inform your primary care physician of this change. Please also inform your primary care physician that you had a 2-D echo done at the hospital which reported preserved ejection fraction heart failure with mild left ventricular diastolic dysfunction. Please continue to use home oxygen. Smoking cessation is recommended. Resume all other home medications as prescribed by your primary care physician - Diet and Activity Activity: resume usual activities as tolerated, wear oxygen at all times Diet: low salt diet Hospital course: Mr. Alegria is a 81 year old male with past medical history of asthma, CVA, COPD , hypertension who was admitted for acute respiratory failure. After further evaluation patient was noted to have mild diastolic dysfunction and pneumonia. He was started on IV diuretic therapy and antibiotics. Patient responded well to therapy and is currently at baseline respiratory status. His renal function has not returned to his baseline however patient is refusing to stay in the hospital and is willing to follow up with his primary care after discharge. He is hemodynamically stable and currently saturating well on nasal cannula. He reports of using 4 L of oxygen at home and currently is using 3.5 L. He is bedbound at baseline and has a home health aide and his that assist him with his daily ADLs. Patient continues to smoke 1-2 cigarettes daily and is not willing to quit. He refused physical therapy evaluation and states he is only going to be discharged to home with home health. At this time patient is hemodynamically stable, respiratory status at his baseline, and will be discharged to home with home health aide. Patient and his demonstrate understanding of his diagnosis and agree with the discharge care and plan. - Time Spent with Patient Total time spent providing and/or coordinating discharge services: Less than 30 minutes - Constitutional Vitals: Temp Pulse Resp BP Pulse Ox 98.0 F 68 16 109/65 94 03/18/17 06:41 03/18/17 06:41 03/18/17 06:41 03/18/17 06:41 03/18/17 09:00 General appearance: Present: A&O X 3, no acute distress - Head Head exam: Present: atraumatic, normocephalic - Respiratory Respiratory exam: Present: CTAB. Absent: accessory muscle use, rales, rhonchi, wheezes - Cardiovascular Cardiovascular exam: Present: RRR, +S1, +S2. Absent: diastolic murmur, gallop, rubs, systolic murmur - GI/Abdominal GI/Abdominal exam: Present: normal bowel sounds, soft, no peritoneal signs. Absent: distended, tenderness - Extremities Exam Extremities exam: Present: warm, radial pulses palpable and symetrical. Absent : calf tenderness, cyanotic, pedal edema Additional comments: Onichomycosis in bilateral toes, poor hygiene - Neurological Exam Neurological exam: Present: alert, oriented X3 - Psychiatric Psychiatric exam: Present: normal affect, normal mood
[2017-03-18 10:53] VITALS: BP 105/67
--- NOTE | 2017-03-18 10:57 | Physician Discharge Referral ---
Home Health/Hosp Referral Info Transfer to: Home Health Provider in Charge Post Discharge: PCP - Diagnosis (1) Acute respiratory failure Priority: Primary Status: Resolved (2) CHF exacerbation Priority: Primary Status: Acute (3) Leukocytosis, unspecified Priority: Secondary Status: Acute (4) Acute kidney injury Priority: Secondary Status: Acute (5) Asthma Priority: Secondary Status: Chronic (6) Hyperkalemia Priority: Secondary Status: Acute (7) Hypertension Priority: Secondary Status: Chronic (8) Smoker Priority: Secondary Status: Chronic (9) DVT prophylaxis Priority: Secondary Status: Acute (10) Frail elderly Priority: Secondary Status: Acute - Respiratory Orders Smoking Cessation: Smoking cessation has been advised. For more information, call the [place] Tobacco Quit Line at 9-031-OALR-NOW. - Services Needed Following services are medically necessary services: Nursing, Home Health Aide, Physical Therapy, Occupational Therapy - Transfer Medications Prescriptions: Furosemide [Lasix] 20 mg PO DAILY #30 tablet Levofloxacin [Levaquin] 500 mg PO DAILY #6 tablet Home Medications: Aspirin 81 mg PO DAILY 02/27/17 [History] Hydroxyzine HCl 25 mg PO BID PRN 02/27/17 [History] Losartan [Cozaar] 25 mg PO DAILY 02/27/17 [History] Propranolol HCl [Innopran Xl] 80 mg PO BID 02/27/17 [History] Simvastatin [Zocor] 40 mg PO HS 02/27/17 [History] Albuterol Neb [Proventil Neb] 2.5 mg IH TID PRN 03/16/17 [History] Docusate [Colace] 100 mg PO BID PRN 03/16/17 [History] Oxygen 1 each .ROUTE AD 03/16/17 [History] Tolnaftate [Anti-Fungal] 1 appl TP DAILY PRN 03/16/17 [History] Furosemide [Lasix] 20 mg PO DAILY #30 tablet 03/18/17 [Rx] Levofloxacin [Levaquin] 500 mg PO DAILY #6 tablet 03/18/17 [Rx] Allergies/Adverse Reactions: Allergies Sulfa (Sulfonamide Antibiotics) Allergy (Verified 03/15/17 22:04) Hives Certification: Further, I certify that my clinical findings support that this patient is homebound (i.e. absences from home require considerable and taxing effort and are for medical reasons or voodoo services or infrequently or short duration when for other reasons) because: Homebound Reason: Patient requires assistance of a person or device to safely leave home, Leaving home requires considerable and taxing effort due to condition Attestation: My signature below is to certify that this patient is under my care and that I, or nurse practitioner, or a physician's assistant professor surgical technology working with me, has a face-to -face encounter with this patient.
[2017-03-19] MEDS ORDERED: Levofloxacin 750 MG/150 ML 750 MG/150 ML BAG IVPB SCH (13:00)
== END 2017-03-18 12:08 | disposition home health service (06) | DRG 291 ==
LOC: 2ANU 21:56 → EMEROO 21:56 → 2ANU 03-16 01:34
PROVIDERS: ADMIT Internal Medicine; ATTEND Internal Medicine

== ENCOUNTER 2017-04-14 01:41 | Inpatient (IN) ==
[2017-04-14] MEDS ORDERED: methylPREDNISolone 125 MG/2 ML VIAL IVP ONE (01:54)
[2017-04-14] MEDS ORDERED: Ipratropium/Albuterol Neb 3 ML IH ONE (01:54)
--- NOTE | 2017-04-14 01:59 | Emergency Department Note ---
Disposition Clinical Impression: Pneumonia Qualifiers: Pneumonia type: due to unspecified organism Laterality: right Lung location: lower lobe of lung Qualified Code(s): J18.1 - Lobar pneumonia, unspecified organism Disposition: Admitted As Inpatient Condition: Good Time of Disposition: 04:58 General Adult HPI - General Chief complaint: ED Shortness of Breath/Dyspnea Stated complaint: GEN Time Seen by Provider: 04/14/17 01:54 Source: patient, family, EMS Limitations: no limitations Nursing Notes Reviewed: Yes Vital Signs Reviewed: Yes - History of Present Illness HPI Narrative: Three-day history of shortness of breath. Increasing be worse today. Oxygen saturation not staying adequate on home oxygen of 2 L. Productive cough of yellow sputum. Denies any chest pain. Reporting shortness of breath. Using accessory muscles to breathe. Pain Scale: 0 - Related Data Home Medications Medication Instructions Recorded Confirmed Aspirin 81 mg PO DAILY 02/27/17 03/16/17 Losartan [Cozaar] 25 mg PO DAILY 02/27/17 03/16/17 Propranolol HCl [Innopran Xl] 80 mg PO BID 02/27/17 03/16/17 Simvastatin [Zocor] 40 mg PO HS 02/27/17 03/16/17 hydrOXYzine HCl [Hydroxyzine HCl] 25 mg PO BID PRN 02/27/17 03/16/17 Albuterol Neb [Proventil Neb] 2.5 mg IH TID PRN 03/16/17 03/16/17 Docusate [Colace] 100 mg PO BID PRN 03/16/17 03/16/17 Oxygen 1 each .ROUTE AD 03/16/17 03/16/17 Tolnaftate [Anti-Fungal] 1 appl TP DAILY PRN 03/16/17 03/16/17 Previous Rx's Medication Instructions Recorded Furosemide [Lasix] 20 mg PO DAILY #30 tablet 03/18/17 levoFLOXacin [Levaquin] 500 mg PO DAILY #6 tablet 03/18/17 Allergies Allergy/AdvReac Type Severity Reaction Status Date / Time Sulfa (Sulfonamide Allergy Hives Verified 03/15/17 22:04 Antibiotics) All systems ED: reviewed and negative except as stated. Constitutional: Denies: fever, chills ENT ED: Denies: congestion Cardiovascular: Denies: chest pain, palpitations, syncope Respiratory: Reports: cough, dyspnea (With yellow sputum for 3 days.), sputum production. Denies: wheezes Gastrointestinal: Denies: abdominal pain, nausea, vomiting, diarrhea, hematemesis, melena, hematochezia Genitourinary: Denies: urgency, dysuria, frequency, hematuria Integumentary: Denies: rash Neurological: Denies: headache, weakness, numbness Past Medical History - Past Medical History Attestation: Yes The following information was validated with the patient. Medical history: Reports: asthma, CVA, hypertension, other Surgical history: Reports: other (lumbar x 2) Psychiatric history: Reports: no psych history - Social History Smoking Status: Current some day smoker Smokeless Tobacco Status: No Alcohol use: Reports: none Drug use: Reports: none Physical Exam - General Limitations: no limitations General appearance: alert, lethargic, in distress (In respiratory distress.) - Head Head exam: atraumatic, normocephalic - Eye Eye exam: Present: normal appearance, PERRL, EOMI. Absent: scleral icterus - ENT ENT exam: normal exam, normal oropharynx, mucous membranes moist - Neck Neck exam: Present: normal inspection, full ROM, trachea midline. Absent: tenderness, meningismus, lymphadenopathy - Chest Chest inspection: Present: normal inspection, symmetric chest wall rise. Absent : tenderness - Respiratory Respiratory exam: Present: respiratory distress, accessory muscle use, other ( Faint lung sounds on the left. Patient using accessory muscles to breathe.). Absent: wheezes - Cardiovascular Cardiovascular exam: Present: regular rate, normal rhythm, normal heart sounds - Abdominal Exam Abdominal exam: Present: soft, Non-Tender, normal bowel sounds - Extremities Exam Extremities exam: Present: normal inspection, full ROM, normal capillary refill. Absent: tenderness, pedal edema - Back Exam Back exam: Present: normal inspection, full ROM. Absent: tenderness, CVA tenderness (R), CVA tenderness (L) - Neurological Exam Neurological exam: Present: alert, oriented X3 - Psychiatric Psychiatric exam: Present: normal affect, normal mood - Skin Skin exam: Present: warm, dry, intact, normal color, rash. Absent: cyanosis, diaphoresis Course Course Narrative: Patient presents emergency department by EMS. This is a 2 day history of shortness of breath. Today he just got extremely worse. It had several bouts of pneumonia over this year. Is not on antibiotics at this time for it. Does have a productive cough with yellow sputum. Denies any fevers or chills. He wears oxygen at home 2 L. This would had a 80% per EMS. Is on nonrebreather at this time with an oxygen saturation of 88%. He is cyanotic about the lips. We will get a bedside chest x-ray and give him 3 duo nebs. His left lung sounds are faint. Right lung sounds are relatively clear. Heart sounds are normal. Abdomen is soft nontender on exam. He is using accessory muscles to breathe at this time. I anticipate admission. We will get a basic lab workup and an EKG. - Reevaluation(s) Reevaluation #1: On evaluation of the x-ray it appears as if he has a right lower lobe pneumonia. There is also left-sided pleural effusion. Patient has a recent admission for pneumonia. We will begin him on triple antibiotic therapy and admitted him to the hospital. After a triple DuoNeb of his oxygen saturation is now staying in the low 90s on 4 L nasal cannula. He does appear as if he has breathing easier at this time. - Consultations Consultation #1: Dr. Lei accepted patient in stable condition. Time: 03:41 Vital Signs Temperature 97.6 F 04/14/17 01:44 Pulse Rate 80 04/14/17 01:44 Respiratory Rate 24 04/14/17 01:44 Blood Pressure 125/63 04/14/17 01:44 O2 Sat by Pulse Oximetry 87 04/14/17 01:44 Temperature 97.6 F 04/14/17 01:44 Pulse Rate 82 04/14/17 03:28 Respiratory Rate 18 04/14/17 04:16 Blood Pressure 146/70 04/14/17 04:16 O2 Sat by Pulse Oximetry 93 04/14/17 03:28 Oxygen Delivery Oxygen Delivery Nasal Cannula Medical Decision Making - Medical Records Medical records reviewed: Yes I reviewed the patient's medical records. - Lab Data Lab results reviewed: Yes I reviewed the patient's lab results. Result diagrams: 04/14/17 02:14 04/14/17 02:14 Lab Results 04/14/17 04/14/17 04/14/17 Range/Units 02:14 02:14 02:14 WBC 15.1 H (4.3-11.1) K/mcL RBC 5.23 (4.19-5.50) M/mcL Hgb 14.7 (12.9-16.9) g/dL Hct 48.9 (37.5-50.1) % MCV 93.5 (83.0-100.0) fL MCH 28.1 (28.0-33.3) pg MCHC 30.1 L (31.6-35.5) g/dL RDW 15.4 H (11.5-14.5) % Plt Count 188 (140-400) K/mcL MPV 11.1 (9.4-12.4) fL Immature Gran % 1.3 (0-4) % Seg Neutrophils % 84.0 % Lymphocytes % 5.7 % Monocytes % 8.2 % Eosinophils % 0.3 % Basophils % 0.5 % Neutrophils # 12.7 H (1.6-8.9) K/mcL Lymphocytes # 0.9 (0.6-4.6) K/mcL Monocytes # 1.2 (0.0-1.3) K/mcL Eosinophils # 0.1 (0.0-0.6) K/mcL Basophils # 0.1 (0.0-0.2) K/mcL PT (9.4-12.1) Seconds INR APTT (26.0-36.0) Seconds Sodium (136-145) mEq/L Potassium (3.5-4.5) mEq/L Chloride (98-109) mEq/L Carbon Dioxide (19-29) mEq/L BUN (8-26) mg/dL Creatinine (0.72-1.25) mg/dL Est GFR ( Amer) (> 60) Est GFR (Non-Af Amer) (> 60) BUN/Creatinine Ratio (6-26) Glucose (70-99) mg/dL Calculated Osmolality (280-300) Lactic Acid 0.9 (0.5-2.2) mmol/L Calcium (8.6-10.8) mg/dL Phosphorus (2.3-4.7) mg/dL Magnesium (1.6-2.6) mg/dL Troponin I 0.07 H* (0-0.03) ng/mL B-Natriuretic Peptide (0-100) pg/mL 05/27/17 05/27/17 05/27/17 Range/Units 02:14 02:14 02:14 WBC (4.3-11.1) K/mcL RBC (4.19-5.50) M/mcL Hgb (12.9-16.9) g/dL Hct (37.5-50.1) % MCV (83.0-100.0) fL MCH (28.0-33.3) pg MCHC (31.6-35.5) g/dL RDW (11.5-14.5) % Plt Count (140-400) K/mcL MPV (9.4-12.4) fL Immature Gran % (0-4) % Seg Neutrophils % % Lymphocytes % % Monocytes % % Eosinophils % % Basophils % % Neutrophils # (1.6-8.9) K/mcL Lymphocytes # (0.6-4.6) K/mcL Monocytes # (0.0-1.3) K/mcL Eosinophils # (0.0-0.6) K/mcL Basophils # (0.0-0.2) K/mcL PT 11.8 (9.4-12.1) Seconds INR 1.1 APTT 29.7 (26.0-36.0) Seconds Sodium 141 (136-145) mEq/L Potassium 4.9 H (3.5-4.5) mEq/L Chloride 100 (98-109) mEq/L Carbon Dioxide 35 H (19-29) mEq/L BUN 38 H (8-26) mg/dL Creatinine 1.23 (0.72-1.25) mg/dL Est GFR ( Amer) > 60 (> 60) Est GFR (Non-Af Amer) 56 L (> 60) BUN/Creatinine Ratio 31 H (6-26) Glucose 115 H (70-99) mg/dL Calculated Osmolality 302 H (280-300) Lactic Acid (0.5-2.2) mmol/L Calcium 9.4 (8.6-10.8) mg/dL Phosphorus 4.4 (2.3-4.7) mg/dL Magnesium 2.8 H (1.6-2.6) mg/dL Troponin I (0-0.03) ng/mL B-Natriuretic Peptide 503 H (0-100) pg/mL - Radiology Data Radiology results reviewed: Yes I reviewed the patient's radiology results. On reviewing the patient's chest x-ray it looks like she has a right lower lobe pneumonia. However the x-ray was read differently by radiology. Chest X-Ray 04/14/17 01:54 IMPRESSION: Findings suggest congestive heart failure. Superimposed pneumonia in the left lower lobe cannot be excluded. D/ / Jona Ibrahim MD / Jona Ibrahim MD Interpreting Provider: Jona Ibrahim MD Chest X-Ray 04/14/17 01:54 IMPRESSION: Findings suggest congestive heart failure. Superimposed pneumonia in the left lower lobe cannot be excluded. D/ / Jona Ibrahim MD / Jona Ibrahim MD Interpreting Provider: Jona Ibrahim MD - EKG Data EKG #1 EKG attestation: Yes I reviewed and interpreted this EKG. EKG results narrative: Normal sinus rhythm with a tertiary AV block. Ventricular rate of 81. VT interval is 218. QRS duration is 97. QT is 384. QTC is 422. No signs of acute ischemia there is poor R-wave progression other than that there is no significant changes from previous EKG dated 03/15/2017. Critical Care Time Critical Care Time: Yes Total Critical Care Time: 45 Attestation: Critical care performed: Time is exclusive of separately billable procedures. Time includes: direct patient care, patient reassessment, coordination of patient care, interpretation of data (laboratory data, radiology data, and respiratory data), review of patient's medical records, medical consultation and documentation of patient care. Procedures included in critical care time: Procedures excluded from critical care time: Attestation Statement - Attestation Attestation: I, Cristhian Damon MD, personally evaluated this patient and discussed their management with the resident physician. I reviewed the resident's note and agree with the documented findings, medical decision making, and plan of care. 81-year-old male presents to the emergency department by ambulance with a complaint of increasing shortness of breath over the past 2 days which became acutely worse about one hour prior to arrival tonight. He denies any cough or fever. No chest pain. Patient is cared for at home and is bedfast. He was last in the hospital here about 3 weeks ago for an similar symptoms. He is on oxygen at home at 4 L/m. On examination patient is a well-developed thin elderly male in mild respiratory distress. He has alert and appropriate. There is no cyanosis or diaphoresis. Breath sounds are markedly decreased bilaterally. No wheezes or rales noted. Heart regular rate and rhythm. Abdomen soft and nontender with normal bowel sounds. On portable chest x-ray reviewed by me he appears to have an obvious right lower lobe pneumonia. Radiologist read the x-ray as CHF with bilateral pleural effusions and cannot rule out left basilar pneumonia. Labs reviewed. Leukocytosis. Troponin 0.07 however on reviewing the records his troponin has been running elevated for the past month or 2. No acute ischemic changes on EKG. Possible anterior [place] of indeterminate age. The hospitalist, Dr. Lei, was consulted and accepted admission of the patient.
[2017-04-14] MEDS ORDERED: Vancomycin 1,250 MG in D5% in Water 250 ML IVPB ONE (02:07)
[2017-04-14] MEDS ORDERED: Piperacillin/Tazobactam 3.375 GM in D5% in Water (Mini-Bag+) 100 ML IVPB ONE (02:07)
[2017-04-14] MEDS ORDERED: Levofloxacin 750 MG/150 ML 750 MG/150 ML BAG IVPB ONE (02:07)
[2017-04-14 02:23] LABS: Basophils # 0.1 K/mcL (0.0-0.2); Basophils % 0.5 %; Eosinophils # 0.1 K/mcL (0.0-0.6); Eosinophils % 0.3 %; Hematocrit 48.9 % (37.5-50.1); Hemoglobin 14.7 g/dL (12.9-16.9); Immature Granulocytes % 1.3 % (0-4); Lymphocytes # 0.9 K/mcL (0.6-4.6); Lymphocytes % 5.7 %; Mean Corpuscular HGB Conc 30.1 g/dL (31.6-35.5); Mean Corpuscular Hemoglobin 28.1 pg (28.0-33.3); Mean Corpuscular Volume 93.5 fL (83.0-100.0); Mean Platelet Volume 11.1 fL (9.4-12.4); Monocytes # 1.2 K/mcL (0.0-1.3); Monocytes % 8.2 %; Neutrophils # 12.7 K/mcL (1.6-8.9); Platelet Count 188 K/mcL (140-400); Red Blood Count 5.23 M/mcL (4.19-5.50); Red Cell Distribution Width 15.4 % (11.5-14.5)
[2017-04-14 02:29] LABS: INR 1.1; Prothrombin Time 11.8 Seconds (9.4-12.1)
[2017-04-14 02:31] LABS: Activated Partial Thrombo Time 29.7 Seconds (26.0-36.0)
[2017-04-14 02:37] LABS: BUN/Creatinine Ratio 31 (6-26); Blood Urea Nitrogen 38 mg/dL (8-26); Calcium 9.4 mg/dL (8.6-10.8); Carbon Dioxide 35 mEq/L (19-29); Chloride 100 mEq/L (98-109); Glucose 115 mg/dL (70-99); Magnesium 2.8 mg/dL (1.6-2.6); Osmolality,Calculated 302 (280-300); Phosphorous 4.4 mg/dL (2.3-4.7); Potassium 4.9 mEq/L (3.5-4.5); Sodium 141 mEq/L (136-145); eGFR For African Americans > 60 (> 60); eGFR For Non-African Americans 56 (> 60)
[2017-04-14] MEDS ORDERED: Naloxone 0.4 MG/ML INJ IVP PRN (04:43)
[2017-04-14] MEDS ORDERED: Ondansetron 4 MG/2 ML VIAL IVP PRN (04:43)
[2017-04-14] MEDS ORDERED: Vancomycin (wt based) 1,000 MG VIAL IVPB SCH (05:00)
[2017-04-14] MEDS ORDERED: 0.9 % Sodium Chloride 500 ML ONE (05:11)
[2017-04-14] MEDS ORDERED: 0.9 % Sodium Chloride 1,000 ML IVC ONE (05:22)
[2017-04-14] MEDS ORDERED: 0.9 % Sodium Chloride 500 ML IVC ONE (05:24)
[2017-04-14] MEDS ORDERED: Calcium Gluconate 1,000 MG in D5% in Water 100 ML IVPB ONE (05:25)
--- NOTE | 2017-04-14 05:31 | Event Note ---
Date of Encounter: 04/14/17 Time of Encounter: 05:26 Patient seen and examined with medical laboratory assistant. Healthcare associated pneumonia and acute respiratory failure. He was unresponsive during my interview. I have discussed goals of care with family. and son are present at bedside. They want no rescucitation but agreed to intubation and mechanical ventilation. Start broad-spectrum antibiotics, sputum and blood cultures. ABG. will talk with his other son regarding goals of care.
[2017-04-14] MEDS ORDERED: 0.9 % Sodium Chloride 1,000 ML ONE (05:38)
[2017-04-14] MEDS ORDERED: Lacri-Lube 3.5 GM TUBE BOTH EYES PRN (06:10)
--- NOTE | 2017-04-14 06:15 | Internal Med History&Physical ---
Date of Encounter: 04/14/17 Time of Encounter: 05:00 Assessment and Plan (1) Shock Current visit: Yes Status: Acute Likely septic given the patient's white count, tachypnea. Patient is currently requiring lymph node for blood pressure support. Antibiotics have been initiated, initial lactate was negative, repeat pending. Blood cultures have been drawn. The family initially made the patient DNR CCA/DNI however after further discussions they wish to continue with intubation and life support measures until one of his sons can arrive. They did reiterate that in the event of arrest they do not want resuscitative measures. Patient has been made a DNR CCA. (2) Acute and chronic respiratory failure Current visit: Yes Status: Acute Likely in the setting of pneumonia and COPD exacerbation. Patient required intubation. Qualifiers: Respiratory failure complication: hypercapnia Qualified Code(s): J96.22 - Acute and chronic respiratory failure with hypercapnia (3) Pneumonia Current visit: No Status: Acute Healthcare acquired, likely cause of septic shock as discussed above. Blood cultures have been drawn. Antibiotics have been initiated with vancomycin, Levaquin, Zosyn. Qualifiers: Pneumonia type: due to unspecified organism Laterality: unspecified laterality Lung location: unspecified part of lung Qualified Code(s): J18.9 - Pneumonia, unspecified organism (4) COPD (chronic obstructive pulmonary disease) Current visit: Yes Status: Acute Patient has not been diagnosed as COPD but does have a [id number] history and his shortness of breath with increased sputum production and change in sputum character. Likely related to underlying pneumonia. Antibiotics have been initiated as discussed above. Steroids given the emergency department, supplemental 60 mg every 6 hours ordered. Scheduled breathing treatments. Qualifiers: COPD type: COPD with acute exacerbation Qualified Code(s): J44.1 - Chronic obstructive pulmonary disease with (acute) exacerbation (5) CVA, old, hemiparesis Current visit: Yes Status: Acute (6) Hypertension Current visit: Yes Status: Acute Patient currently hypotensive due to septic shock as discussed above so we will hold antihypertensive. Qualifiers: Hypertension type: essential hypertension Qualified Code(s): I10 - Essential (primary) hypertension (7) DVT prophylaxis Current visit: Yes Status: Acute EPCDs Internal Medicine - H&P: HPI Chief complaint: Dyspnea Admitted From: Emergency Dept Plans for Post Hospital Care: Home History of present illness: Mr. Alegria is a 81 year old male history of CVA, diastolic heart failure since with cough and dyspnea. She is minimally responsive so the majority of the history is given by the at bedside. She states that over the last several days the patient seemed to be getting more and more short of breath. She also reports a cough with thick yellow sputum. She denies fever, chills, chest pain. states that he has had multiple bouts of pneumonia recently. Past Med Surg Social Fam HX - Past Medical History Medical history: asthma, CVA, hypertension, other Psychiatric history: no psych history - Past Surgical History Surgical History: other (lumbar x 2) - Social History Smoking Status: Current some day smoker Smokeless Tobacco Status: No Alcohol use: none Drug use: none - Additional Family History Additional family history: Unobtainable due to mental status. Internal Medicine - H&P: Meds Aspirin 81 mg PO DAILY 02/27/17 [History] Losartan [Cozaar] 25 mg PO DAILY 02/27/17 [History] Propranolol HCl [Innopran Xl] 80 mg PO BID 02/27/17 [History] Simvastatin [Zocor] 40 mg PO HS 02/27/17 [History] hydrOXYzine HCl [Hydroxyzine HCl] 25 mg PO BID PRN 02/27/17 [History] Albuterol Neb [Proventil Neb] 2.5 mg IH TID PRN 03/16/17 [History] Docusate [Colace] 100 mg PO BID PRN 03/16/17 [History] Oxygen 1 each .ROUTE AD 03/16/17 [History] Tolnaftate [Anti-Fungal] 1 appl TP DAILY PRN 03/16/17 [History] Furosemide [Lasix] 20 mg PO DAILY #30 tablet 03/18/17 [Rx] levoFLOXacin [Levaquin] 500 mg PO DAILY #6 tablet 03/18/17 [Rx] Allergies Sulfa (Sulfonamide Antibiotics) Allergy (Verified 03/15/17 22:04) Hives ROS unobtainable: due to mental status All Systems PM: A 10-system review of systems was performed and is negative for pertinent findings except as documented above in the HPI. - Constitutional Vitals: Temp Pulse Resp BP Pulse Ox 97.6 F 76 20 111/60 100 04/14/17 01:44 04/14/17 06:02 04/14/17 06:02 04/14/17 06:02 04/14/17 06:02 General appearance: Present: A&O X 0, no acute distress - Head Head exam: Present: atraumatic, normal inspection, normocephalic - Eye Pupils: Present: miosis (minimally responsive.) - ENT ENT exam: Present: mucous membranes dry - Neck Neck exam general surgery: Present: supple - Respiratory Respiratory exam: Present: decreased breath sounds (Right greater than left), tachypnea. Absent: rales, respiratory distress, rhonchi, wheezes - Cardiovascular Cardiovascular exam: Present: RRR. Absent: gallop, rubs, systolic murmur - GI/Abdominal GI/Abdominal exam: Present: normal bowel sounds, soft. Absent: distended, tenderness - Extremities Exam Extremities exam: Present: warm. Absent: pedal edema, tenderness - Neurological Exam Neurological exam: Present: altered. Absent: oriented X3 Additional comments: Patient is minimally responsive. Will grimace to painful stimuli. - Skin Skin exam: Present: dry, intact Internal Med - H&P Results - Labs CBC & Chem 7: 04/14/17 02:14 04/14/17 02:14
[2017-04-14 06:18] LABS: ABG Base Excess 0.6 mEq/L (-2.0 to 3.0); ABG HCO3 32.3 mEQ/L (21-27); ABG Oxygen Saturation 100 % (95-98); ABG PO2 209 mmHg (85-104); ABG TCO2 35.2 mEq/L (20-26)
[2017-04-14 06:19] LABS: Blood Gas FiO2 100 %
[2017-04-14 06:20] LABS: ABG PCO2 95 mmHg (35-45); ABG PH 7.14 pH Units (7.32-7.45)
[2017-04-14 06:34] LABS: Basophils # 0.1 K/mcL (0.0-0.2); Basophils % 0.3 %; Eosinophils % 0.1 %; Hematocrit 40.7 % (37.5-50.1); Immature Granulocytes % 0.9 % (0-4); Lymphocytes # 0.6 K/mcL (0.6-4.6); Lymphocytes % 3.4 %; Mean Corpuscular HGB Conc 30.2 g/dL (31.6-35.5); Mean Corpuscular Hemoglobin 28.6 pg (28.0-33.3); Mean Corpuscular Volume 94.7 fL (83.0-100.0); Monocytes # 1.2 K/mcL (0.0-1.3); Monocytes % 6.7 %; Neutrophils # 15.5 K/mcL (1.6-8.9); Platelet Count 206 K/mcL (140-400); Red Cell Distribution Width 15.3 % (11.5-14.5); Segmented Neutrophils % 88.6 %
[2017-04-14 06:35] LABS: Hemoglobin 12.3 g/dL (12.9-16.9)
--- NOTE | 2017-04-14 06:36 | Pulmonology Consult Note ---
Date of Encounter: 04/14/17 Time of Encounter: 06:36 Assessment and Plan (1) Goals of care, counseling/discussion Current Visit: No Status: Acute discussed goals of care with family at bedside they strongly express that patient would not want this and understand his poor prognosis - initially family made the patient DNR-CCA/DNI but after urther discussions they wished to continue with intubation and life supportive measures until sons can arrive - patient was subsequently intubated and placed on vasopressors in the ICU wish to continue life-support for next 48 hours and agree to withdraw care if no significant improvement code status remains DNR CCA, no CPR or reintubation if temporarily extubated Palliative has seen the patient (2) Acute and chronic respiratory failure Current Visit: Yes Status: Acute likely secondary to pneumonia and COPD exacerbation history of CVA, likely suspect aspiration pneumonia patient required intubation for acute respiratory failure - understand code status DNR-CCA but at the time family wished to continue life supporting measures awaiting for son's arrival and other family GOC discussed, agree with up to 48 hours and reassessment Qualifiers: Respiratory failure complication: hypercapnia Qualified Code(s): J96.22 - Acute and chronic respiratory failure with hypercapnia (3) Septic shock Current Visit: Yes Status: Acute meets SIRS criteria leukocytosis and tachypnea likely source is pneumonia initial lactate 0.9 but rising to 2.2 patient hypotensive likely from septic shock requiring CVC placement and levophed - currently at 10 goal MAP >60 empiric antibiotics initiated (4) Pneumonia Current Visit: Yes Status: Acute suspect aspiration with history CVA and recurrent pneumonia admission CXR 04/14 suggest CF and superimposed pneumonia in the LLL continue to treat with empiric broad spectrum antibiotics Vanc, Levaquin, and Zosyn blood cultures drawn patient is currently intubated and minimally responsive, GOC discussed with family DNR-CCA code status Qualifiers: Pneumonia type: aspiration pneumonia Aspiration pneumonia type: unspecified Laterality: right Lung location: lower lobe of lung Qualified Code(s): J69.0 - Pneumonitis due to inhalation of food and vomit (5) COPD (chronic obstructive pulmonary disease) Current Visit: Yes Status: Acute has not been diagnosed with COPD but significant smoking history steroids given in the ED will continue with supplemental 60 mg q6hr steroids and scheduled bronchodilators Qualifiers: COPD type: COPD with acute exacerbation Qualified Code(s): J44.1 - Chronic obstructive pulmonary disease with (acute) exacerbation (6) Frail elderly Current Visit: No Status: Acute history of CVA bedbound code status DNR-CCA (7) CVA, old, hemiparesis Current Visit: Yes Status: Acute history of CVA, left sided weakness patient remains bedbound at home needing assistance with ADL (8) DVT prophylaxis Current Visit: Yes Status: Acute EPCDs History of Present Illness Consult date: 04/14/17 Requesting physician: Venancio Lei Reason for consult: other (respiratory failure) Chief complaint: Dyspnea, respiratory failure History of present illness: 81-year-old male history of CVA with chronic left-sided weakness and diastolic heart failure presents with worsening cough and dyspnea. Patient was initially admitted to [facility] and transferred to intensive care unit 04/14/2017 due to respiratory failure. Admitted for recurring pneumonia concerned for HCAP , placed on broad-spectrum antibiotics pending blood cultures. Upon arrival he was in hypotensive and dyspneic found to be in septic shock. An IO was placed in upper extremity while CVC was placed due to hypotension secondary to shock. After discussion with family, they wished to continue life supportive measures awaiting sons arrival. Requests were followed electing to intubate and place on vasopressors despite DNR CCA/DNI. Patient seen and examined at bedside with family in the room. History given by reporting progressive dyspnea and cough over past 2 days. Reports thick yellow sputum and multiple episodes of pneumonia. Denies any fevers at home or complaints of chest pain or abdominal pain. He is normally bedbound requiring assistance for ADL and eating. Suspect aspiration, was asked about choking and confirms that he does occasionally have difficulty with swallowing and a recent choking episode. States it never crossed her mind. Through the discussion family reiterates that Mitesh would not wish to be in this state and agree to continue life supportive measures for next 48 hours to await significant improvement and gather family. Past Med Surg Social Fam HX - Past Medical History Medical history: asthma, CVA, hypertension, other Psychiatric history: no psych history - Past Surgical History Surgical History: other (lumbar x 2) - Social History Smoking Status: Current some day smoker Smokeless Tobacco Status: No Alcohol use: none Drug use: none Medications and Allergies Aspirin 81 mg PO DAILY 02/27/17 [History] Losartan [Cozaar] 25 mg PO DAILY 02/27/17 [History] Propranolol HCl [Innopran Xl] 80 mg PO BID 02/27/17 [History] Simvastatin [Zocor] 40 mg PO HS 02/27/17 [History] hydrOXYzine HCl [Hydroxyzine HCl] 25 mg PO BID PRN 02/27/17 [History] Albuterol Neb [Proventil Neb] 2.5 mg IH TID PRN 03/16/17 [History] Docusate [Colace] 100 mg PO BID PRN 03/16/17 [History] Oxygen 1 each .ROUTE AD 03/16/17 [History] Furosemide [Lasix] 20 mg PO DAILY #30 tablet 03/18/17 [Rx] Torsemide [Demadex] 10 mg PO DAILY PRN 04/14/17 [History] Allergies chocolate flavor Allergy (Verified 04/14/17 10:35) Anaphylaxis egg Allergy (Verified 04/14/17 10:35) Anaphylaxis milk Allergy (Verified 04/14/17 10:35) Anaphylaxis Sulfa (Sulfonamide Antibiotics) Allergy (Verified 03/15/17 22:04) Hives ROS unobtainable: due to mental status (assisted by at bedside) - Constitutional Constitutional: fatigue, weakness, no fever(s) - Cardiovascular Cardiovascular: dyspnea, no chest pain - Respiratory Respiratory: cough, dyspnea - Gastrointestinal Gastrointestinal: no abdominal pain, no diarrhea - Genitourinary Genitourinary: no dysuria, no hematuria - Musculoskeletal Musculoskeletal: weakness, muscle weakness - Neurological Neurological: as per HPI - Hematologic/Lymphatic Hematologic/Lymphatic: no easy bleeding Physical Examination Vital Signs: Vital Signs, Last 4 Hours Pulse Resp BP Pulse Ox 04/14/17 06:02 76 20 111/60 100 General appearance: no acute distress, comatose (sedated and unresponsive), other (chronically ill, muscle wasting, cold to the touch) Eyes: nonicteric, other (minimally responsive) ENT: other (endotracheal intubation) Effort: other (mechanically ventilated) Auscultation: bilateral: diminished breath sounds (R > L) Cardiovascular: regular rate and rhythm Gastrointestinal: normoactive bowel sounds, soft, non-tender, non-distended Integumentary: other (dry and cold to touch) Extremities: no edema, cool, other (unkept, long toenails) unable to assess due to mental status (minimally responsive, grimace to painful stimulation) Ventilator Settings Ventilator Settings: Ventilator Settings, Last 8 Hours Ventilator Mode VC+ Ventilator Mode VC+ Ventilator Tidal Volume 500 Setting Ventilator Tidal Volume 500 Setting Ventilator Respiratory Rate 14 Setting Ventilator Respiratory Rate 14 Setting Actual Respiratory Rate 14 Positive End Expiratory 5 Pressure Positive End Expiratory 5 Pressure Peak Inspiratory Airway 41 Pressure Results - Laboratory Findings CBC and BMP: 04/14/17 06:20 04/14/17 06:20 ABG ABG pH 7.14 pH Units (7.32-7.45) L* 04/14/17 06:12 ABG pCO2 95 mmHg (35-45) H* 04/14/17 06:12 ABG pO2 209 mmHg (85-104) H 04/14/17 06:12 ABG O2 Saturation 100 % (95-98) H 04/14/17 06:12 PT/INR, D-dimer PT 11.8 Seconds (9.4-12.1) 04/14/17 02:14 Abnormal lab findings: Abnormal lab results WBC 15.1 K/mcL (4.3-11.1) H 04/14/17 02:14 MCHC 30.1 g/dL (31.6-35.5) L 04/14/17 02:14 RDW 15.4 % (11.5-14.5) H 04/14/17 02:14 Neutrophils # 12.7 K/mcL (1.6-8.9) H 04/14/17 02:14 ABG pH 7.14 pH Units (7.32-7.45) L* 04/14/17 06:12 ABG pCO2 95 mmHg (35-45) H* 04/14/17 06:12 ABG pO2 209 mmHg (85-104) H 04/14/17 06:12 ABG HCO3 32.3 mEQ/L (21-27) H 04/14/17 06:12 ABG Total CO2 35.2 mEq/L (20-26) H 04/14/17 06:12 ABG O2 Saturation 100 % (95-98) H 04/14/17 06:12 Potassium 4.9 mEq/L (3.5-4.5) H 04/14/17 02:14 Carbon Dioxide 35 mEq/L (19-29) H 04/14/17 02:14 BUN 38 mg/dL (8-26) H 04/14/17 02:14 Est GFR (Non-Af Amer) 56 (> 60) L 04/14/17 02:14 BUN/Creatinine Ratio 31 (6-26) H 04/14/17 02:14 Glucose 115 mg/dL (70-99) H 04/14/17 02:14 POC Glucose 164 (58-89) H 04/14/17 05:21 Calculated Osmolality 302 (280-300) H 04/14/17 02:14 Magnesium 2.8 mg/dL (1.6-2.6) H 04/14/17 02:14 Troponin I 0.07 ng/mL (0-0.03) H* 04/14/17 02:14 B-Natriuretic Peptide 503 pg/mL (0-100) H 04/14/17 02:14 - Clinical Findings Intake & Output: Intake & Output 04/13/17 04/13/17 04/14/17 15:59 23:59 07:59 Intake Total 0 / 250 Balance 0 / 250 Consult Discharge Plan - Plan Referrals: Kizzy Pena, [facility] [Primary Care Provider] -
--- NOTE | 2017-04-14 06:36 | Procedure Note ---
Date of procedure: 04/14/17 Pre-op diagnosis: Respiratory failure Post-op diagnosis: same Procedure: Endotracheal intubation: Patient was minimally responsive with extremely shallow breathing. Family was initially hesitant regarding intubation however after further discussion they wish that he be intubated. Patient was preoxygenated with bag valve mask. 20 mg of etomidate and 5 mg of Versed were given for sedation. A size 4 Mac blade laryngoscope was inserted into the oropharynx and the vocal cords were visualized. Cricoid pressure was applied and a 7.5 ET tube was visualized passing through the vocal cords and secured at the 24 cm vishal at the lip. CO2 detector revealed positive color change in her bilateral breath sounds. Chest x -ray confirms satisfactory placement. The patient tolerated the procedure well , there are no immediate complications. The attending physician, Dr. Lei, was present during the entire procedure. Anesthesia: MAC Surgeon: Buzz Noel Pathology: none sent Condition: critical Disposition: ICU
[2017-04-14 06:39] LABS: INR 1.2; Prothrombin Time 13.5 Seconds (9.4-12.1)
[2017-04-14 06:42] LABS: Ionized Calcium 1.17 mmol/L (1.15-1.35)
--- NOTE | 2017-04-14 06:44 | Procedure Note ---
Date of procedure: 04/14/17 Pre-op diagnosis: Hypotension Post-op diagnosis: same Procedure: Central venous catheter placement: Upon arrival to the ICU the patient had significant hypotension with multiple blood pressure readings in the 40s over 30s. After discussion with the family they wish that the patient be placed on blood pressure support therefore a central line was indicated. Verbal consent was obtained from the . Given the severe hypotension and concern for a rest before the central venous catheter could be placed a right humeral head a interosseous line was placed by nursing staff and norepinephrine was started. The right internal jugular vein was surveyed using ultrasound and deemed to be a suitable target. The patient was placed in Trendelenburg. The area was cleaned and draped in usual sterile fashion. An introducer needle passed into the right internal jugular vein using ultrasound guidance. Dark red nonpulsatile blood was returned. A guidewire was passed through the needle into the internal jugular vein. After about 10 cm of insertion resistance was felt. The needle was repositioned and blood flow was still present so the guidewire was then again passed to the needle and advanced without resistance. The needle was removed and using ultrasound the guidewire was visualized within the right internal jugular vein. A paola in the skin was made using scalpel and the dilator was passed over the guidewire and the skin and soft tissues are dilated. The dilator was then removed and a 20 cm triple-lumen catheter was advanced over the guidewire and into the right internal jugular vein. The guidewire was removed intact. All 3 ports were tested and shown to draw blood and flushed easily. The catheter was then sutured in place. Biopatch and sterile dressing were applied. Chest x- ray confirmed placement with the tip of the catheter within the SVC. The patient tolerated the procedure well, there are no immediate complications. Anesthesia: GETA Surgeon: Buzz Noel Estimated blood loss (cc): 15 IV fluids (cc): 20 Pathology: none sent Condition: critical Disposition: ICU
[2017-04-14] MEDS: FentaNYL (PF) 1,000 MCG in 0.9 % Sodium Chloride 80 ML IVC SCH ×2 (06:47→19:00)
[2017-04-14] MEDS: Norepinephrine 4 MG in D5% in Water 250 ML IVC SCH ×4 (06:48→22:19)
[2017-04-14 06:50] LABS: Alanine Aminotransferase 19 Units/L (0-55); Albumin 2.1 g/dL (3.5-5.0); Albumin/Globulin Ratio 0.7 (1.1-2.2); Alkaline Phosphatase 85 Units/L (38-126); Aspartate Amino Transferase 13 Units/L (5-34); BUN/Creatinine Ratio 30 (6-26); Bilirubin,Direct 0.8 mg/dL (0.0-0.5); Bilirubin,Indirect 0.8 mg/dL (0.0-1.2); Bilirubin,Total 1.6 mg/dL (0.2-1.2); Blood Urea Nitrogen 40 mg/dL (8-26); Calcium 8.5 mg/dL (8.6-10.8); Carbon Dioxide 30 mEq/L (19-29); Chloride 103 mEq/L (98-109); Globulin 3.1 g/dL (2.4-3.5); Glucose 220 mg/dL (70-99); Magnesium 2.5 mg/dL (1.6-2.6); Osmolality,Calculated 305 (280-300); Potassium 4.8 mEq/L (3.5-4.5); Sodium 139 mEq/L (136-145); Total Protein 5.2 g/dL (6.0-8.3); eGFR For African Americans > 60 (> 60); eGFR For Non-African Americans 52 (> 60)
[2017-04-14] MEDS: Ipratropium/Albuterol Neb 3 ML IH SCH ×5 (07:36→23:55)
[2017-04-14] MEDS ORDERED: Lacri-Lube 3.5 GM TUBE BOTH EYES SCH (08:00)
[2017-04-14] MEDS: Piperacillin/Tazobactam 3.375 GM in D5% in Water (Mini-Bag+) 100 ML IVPB SCH ×3 (09:48→23:43)
[2017-04-14] MEDS: methylPREDNISolone 125 MG/2 ML VIAL IVP SCH ×4 (09:48→23:43)
[2017-04-14] MEDS: Chlorhexidine Rinse 15 ML MOUTHWASH MM SCH ×2 (09:49→20:33)
[2017-04-14] MEDS: Furosemide 20 MG/2 ML VIAL IVP SCH (09:49)
[2017-04-14] MEDS: Pantoprazole 40 MG VIAL IVP SCH (09:49)
--- NOTE | 2017-04-14 11:09 | Palliative - Consult Note ---
Date of Encounter: 04/14/17 Time of Encounter: 10:00 - Assessment and Plan (1) Dyspnea and respiratory abnormalities Current Visit: Yes Status: Acute Assessment and plan: Patient with RLL pneumonia, left pleural effusion resulting in respiratory failure. Patient with low B/P and on Levophed pressor support. Receiving antibiotics, duonebs, lasix. Vent settings TV 500, 50% FiO2. Scattered rhonchi with diminished bilateral bases. (2) Goals of care, counseling/discussion Current Visit: No Status: Acute Assessment and plan: Case discussed with Dr. Sequeira. Family meeting this AM. Family desires to give patient additional time to recover while on mechanical ventilation and receiving antibiotics and respiratory support. Family initially desires to discuss options for comfort care but has now opted for additional medical treatment. Palliative care will follow patients progress and work with the family as needed. Patient is DNRCC-A. (3) Pneumonia Current Visit: No Status: Acute Qualifiers: Pneumonia type: due to unspecified organism Laterality: unspecified laterality Lung location: unspecified part of lung Qualified Code(s): J18.9 - Pneumonia, unspecified organism (4) Frail elderly Current Visit: No Status: Acute (5) CHF (congestive heart failure) Current Visit: No Status: Acute Qualifiers: Congestive heart failure type: unspecified congestive heart failure type Congestive heart failure chronicity: unspecified congestive heart failure chronicity Qualified Code(s): I50.9 - Heart failure, unspecified (6) Acute respiratory failure Current Visit: No Status: Resolved Qualifiers: Respiratory failure complication: hypoxia Qualified Code(s): J96.01 - Acute respiratory failure with hypoxia Palliative-CN HPI - Data of Consult Patient: new to practice Consult date: 04/14/17 Requesting Physician: Buzz Noel Primary Care Provider: Kizzy Pena CNP - Consult Narrative Palliative Care/Comfort Measures: Palliative care Reason for consult: Goals of Care History of present illness: Mr. Alegria is a 81 year old male admitted for Pneumonia resulting in respiratory failure. Patient was admitted to [facility] and transferred to ICU after a rapid response was called and the patient was intubated and transferred to the ICU. Upon this consult the patient is intubated with an ET tube and nursing reports that the patients family went home after having a detailed [facility] discussion with Dr. Christensen. 's contact Leora #[phone]. Patient has been living at home in the care of family and has suffered from repeat episodes of pneumonia. This palliative care consult of for GOC planning. CC: Iván Garcia MD Past Med Surg Social Fam HX - Past Medical History Source: old records reviewed Medical history: asthma, CVA, hypertension, other Psychiatric history: no psych history - Past Surgical History Surgical History: other (lumbar x 2) - Social History Smoking Status: Current some day smoker Smokeless Tobacco Status: No Alcohol use: none Drug use: none Medications and Allergies Aspirin 81 mg PO DAILY 02/27/17 [History] Losartan [Cozaar] 25 mg PO DAILY 02/27/17 [History] Propranolol HCl [Innopran Xl] 80 mg PO BID 02/27/17 [History] Simvastatin [Zocor] 40 mg PO HS 02/27/17 [History] hydrOXYzine HCl [Hydroxyzine HCl] 25 mg PO BID PRN 02/27/17 [History] Albuterol Neb [Proventil Neb] 2.5 mg IH TID PRN 03/16/17 [History] Docusate [Colace] 100 mg PO BID PRN 03/16/17 [History] Oxygen 1 each .ROUTE AD 03/16/17 [History] Furosemide [Lasix] 20 mg PO DAILY #30 tablet 03/18/17 [Rx] Torsemide [Demadex] 10 mg PO DAILY PRN 04/14/17 [History] Allergies chocolate flavor Allergy (Verified 04/14/17 10:35) Anaphylaxis egg Allergy (Verified 04/14/17 10:35) Anaphylaxis milk Allergy (Verified 04/14/17 10:35) Anaphylaxis Sulfa (Sulfonamide Antibiotics) Allergy (Verified 03/15/17 22:04) Hives ROS unobtainable: due to endotracheal tube - Constitutional Constitutional ROS PAL: decreased appetite, fatigue - EENT Eyes: requires corrective lenses - Cardiovascular Cardiovascular ROS: dyspnea on exertion - Respiratory Respiratory: cough, dyspnea on exertion - Gastrointestinal Gastrointestinal: as per HPI - Genitourinary Genitourinary ROS male: as per HPI - Musculoskeletal Musculoskeletal ROS IM: muscle weakness - Integumentary ROS Integumentary: dry skin - Neurological Neurological ROS: weakness Palliative Care-Exam - Constitutional Vitals: Temp Pulse Resp BP Pulse Ox 97.6 F 77 20 65/53 92 04/14/17 09:00 04/14/17 10:00 04/14/17 10:00 04/14/17 10:00 04/14/17 10:00 General appearance: Present: cooperative (opens eyes to name), no acute distress - Head Head Exam: Present: atraumatic, normal inspection, normocephalic - Eye Eye exam: Present: PERRL Pupils: Present: PERRL - ENT ENT exam: Present: mucous membranes moist - Expanded Respiratory Exam Location: decreased breath sounds: Left, Right, Lower, rhonchi: Left, Right, Upper - Cardiovascular Cardiovascular exam: Present: RRR, +S1, +S2 - Expanded Cardiovascular Exam Peripheral pulses: 1+: Femoral (L) PM, Femoral (R) PM, Posterior Tibialis (L), Posterior Tibialis (R), Dorsalis Pedis (L) PM, Dorsalis Pedis (R) PM, 2+: Carotid (L) PM, Carotid (R) PM, Radial (L), Radial (R) - GI/Abdominal Exam GI/Abdominal exam: Present: soft - Catheter Type: Urethral (Haney) (clear slightly dark urine) - Neurological Exam Neurological exam: Present: altered (intubated and mechanically ventilated - TV 500, 50% FiO2) - Psychiatric Psychiatric exam: Present: flat affect - Skin Skin exam: Present: dry, pallor, warm Internal Medicine - CN: Reslt - Labs CBC & Chem 7: 04/14/17 06:20 04/14/17 06:20 Labs: Short CBC 04/14/17 Range/Units 06:20 WBC 17.6 H (4.3-11.1) K/mcL Hgb 12.3 L D (12.9-16.9) g/dL Hct 40.7 (37.5-50.1) % Plt Count 206 (140-400) K/mcL Neutrophils # 15.5 H (1.6-8.9) K/mcL BMP 04/14/17 06:20 Sodium 139 Potassium 4.8 H Chloride 103 Carbon Dioxide 30 H BUN 40 H Creatinine 1.32 H Glucose 220 H Calcium 8.5 L Cardiac Enzymes 04/14/17 Range/Units 06:20 Troponin I 0.08 H* (0-0.03) ng/mL Liver Function 04/14/17 Range/Units 06:20 Total Bilirubin 1.6 H (0.2-1.2) mg/dL Direct Bilirubin 0.8 H (0.0-0.5) mg/dL AST 13 (5-34) Units/L ALT 19 (0-55) Units/L Alkaline Phosphatase 85 (38-126) Units/L Albumin 2.1 L (3.5-5.0) g/dL - ABG Interpretation ABG results: ABG ABG pH 7.14 pH Units (7.32-7.45) L* 04/14/17 06:12 ABG pCO2 95 mmHg (35-45) H* 04/14/17 06:12 ABG pO2 209 mmHg (85-104) H 04/14/17 06:12 ABG O2 Saturation 100 % (95-98) H 04/14/17 06:12 PT/INR, D-dimer PT 13.5 Seconds (9.4-12.1) H 04/14/17 06:20 - Impressions Impressions Chest X-Ray 04/14/17 05:54 IMPRESSION: 1. The endotracheal tube has its tip approximately 4.6 cm above the elif. 2. The enteric tube has its side port at the GE junction and tip in the fundus. Advancement is suggested. 3. Patchy bilateral airspace disease, atelectasis versus pneumonia. Small pleural effusions. 4. The right IJ catheter has its tip in the superior vena cava. No pneumothorax. D/ / 04/14/2017 07:17:08 Hong Hinds MD / jania Interpreting Provider: Hong Hinds MD KUB X-Ray 04/14/17 05:56 IMPRESSION: 1. The endotracheal tube has its tip approximately 4.6 cm above the elif. 2. The enteric tube has its side port at the GE junction and tip in the fundus. Advancement is suggested. 3. Patchy bilateral airspace disease, atelectasis versus pneumonia. Small pleural effusions. 4. The right IJ catheter has its tip in the superior vena cava. No pneumothorax. D/ / 04/14/2017 07:17:08 Hong Hinds MD / jania Interpreting Provider: Hong Hinds MD Consult Discharge Plan - Plan Referrals: Kizzy Pena CNP [Primary Care Provider] - Palliative Quality Palliative Quality: Screen for Code Status: Yes, Screen for Goals of Care: Yes, Screen for Pain: Yes, If Pain Regimen Started, Initiate Bowel Regimen: No, Screen for Nausea/Vomitting: Yes
[2017-04-14] MEDS ORDERED: Vancomycin 1,500 MG in D5% in Water 250 ML IVPB SCH (17:00)
[2017-04-14] MEDS ORDERED: D5% in Water 1,000 ML IVC PRN (21:15)
[2017-04-14] MEDS ORDERED: *HR* Dextrose 50 % in Water (Syg) 50 ML SYRINGE IVP PRN (21:15)
[2017-04-14] MEDS ORDERED: Dextrose Gel 15 GM PO PRN ×2 (21:15)
[2017-04-14] MEDS ORDERED: Insulin LISPRO 300 UNITS/3 ML VIAL SQ ONE (21:24)
[2017-04-15] MEDS: Insulin LISPRO 300 UNITS/3 ML VIAL SQ SCH ×2 (00:11→05:46)
[2017-04-15] MEDS ORDERED: Vancomycin 1,250 MG in D5% in Water 250 ML IVPB SCH (02:00)
[2017-04-15 04:00] LABS: Calcium 8.4 mg/dL (8.6-10.8); Magnesium 2.9 mg/dL (1.6-2.6)
[2017-04-15 04:08] LABS: Hematocrit 39.4 % (37.5-50.1); Hemoglobin 12.8 g/dL (12.9-16.9); Immature Platelets 5.2 % (1.1-6.1); Mean Corpuscular HGB Conc 32.5 g/dL (31.6-35.5); Mean Corpuscular Hemoglobin 28.6 pg (28.0-33.3); Mean Corpuscular Volume 87.9 fL (83.0-100.0); Mean Platelet Volume 11.2 fL (9.4-12.4); Platelet Count 231 K/mcL (140-400); Red Blood Count 4.48 M/mcL (4.19-5.50); Red Cell Distribution Width 15.4 % (11.5-14.5)
[2017-04-15 04:09] LABS: Basophils % 0.2 %; Immature Granulocytes % 0.8 % (0-4); Lymphocytes # 1.1 K/mcL (0.6-4.6); Lymphocytes % 5.2 %; Monocytes # 1.4 K/mcL (0.0-1.3); Monocytes % 6.7 %; Neutrophils # 18.5 K/mcL (1.6-8.9); Nucleated Red Blood Cells 0.1 /100 WBC (0); Segmented Neutrophils % 87.1 %
[2017-04-15] MEDS: Ipratropium/Albuterol Neb 3 ML IH SCH ×3 (04:11→11:12)
[2017-04-15] MEDS: FentaNYL (PF) 1,000 MCG in 0.9 % Sodium Chloride 80 ML IVC SCH (04:21)
[2017-04-15] MEDS: Norepinephrine 4 MG in D5% in Water 250 ML IVC SCH (04:21)
[2017-04-15 05:19] LABS: ABG Base Excess 11.8 mEq/L (-2.0 to 3.0); ABG HCO3 36.7 mEQ/L (21-27); ABG Oxygen Saturation 98 % (95-98); ABG PCO2 47 mmHg (35-45); ABG PO2 90 mmHg (85-104); ABG TCO2 38.1 mEq/L (20-26); Blood Gas FiO2 50 %
[2017-04-15] MEDS: methylPREDNISolone 125 MG/2 ML VIAL IVP SCH (05:46)
[2017-04-15] MEDS: Pantoprazole 40 MG VIAL IVP SCH (05:46)
[2017-04-15] MEDS: Piperacillin/Tazobactam 3.375 GM in D5% in Water (Mini-Bag+) 100 ML IVPB SCH (07:52)
[2017-04-15] MEDS: Chlorhexidine Rinse 15 ML MOUTHWASH MM SCH (07:52)
[2017-04-15] MEDS: Furosemide 20 MG/2 ML VIAL IVP SCH (07:52)
[2017-04-15] MEDS ORDERED: Aminoglycoside Consult 1 EACH MC ONE (09:17)
--- NOTE | 2017-04-15 09:29 | Pulmonology Progress Note ---
Date of Encounter: 04/15/17 Time of Encounter: 09:27 Assessment and Plan (1) Acute respiratory failure with hypoxia Current Visit: Yes Status: Acute (2) Aspiration pneumonia Current Visit: Yes Status: Acute Qualifiers: Aspiration pneumonia type: unspecified Laterality: bilateral Lung location: unspecified part of lung Qualified Code(s): J69.0 - Pneumonitis due to inhalation of food and vomit (3) Acute renal failure Current Visit: Yes Status: Acute Qualifiers: Acute renal failure type: with acute tubular necrosis Qualified Code(s): N17.0 - Acute kidney failure with tubular necrosis (4) DNR (do not resuscitate) Current Visit: Yes Status: Acute (5) Septic shock Current Visit: Yes Status: Acute Subjective Principal diagnosis: Acute respiratory failure, septic shock Interval history: No acute overnight events. Patient remained stable on mechanical ventilator and low-dose norepinephrine. Unable to obtain review of systems secondary to the mechanical ventilator and sedation. Objective PUL Vital signs: Last Vital Signs Temp 98.1 F 04/15/17 08:00 Pulse 67 04/15/17 09:00 Resp 20 04/15/17 09:00 BP 113/62 04/15/17 09:00 Pulse Ox 99 04/15/17 09:00 General: Intubated and sedated Eyes: nonicteric ENT: Endotracheal tube in place Neck: supple, no lymphadenopathy Lungs: Coarse bilateral breath sounds Cardiovascular: regular rate and rhythm Gastrointestinal: normoactive bowel sounds, soft, non-tender, non-distended Integumentary: normal Extremities: no cyanosis, no edema Musculoskeletal: no deformities Neuro: Sedate Ventilator Settings Ventilator Settings: Ventilator Settings, Last 8 Hours Ventilator Mode VC+ Ventilator Mode VC+ Ventilator Mode VC+ Ventilator Mode VC+ Ventilator Mode VC+ Ventilator Mode VC+ Ventilator Mode VC+ Ventilator Mode VC+ Ventilator Mode VC+ Ventilator Mode VC+ Ventilator Tidal Volume 500 Setting Ventilator Tidal Volume 500 Setting Ventilator Tidal Volume 500 Setting Ventilator Tidal Volume 500 Setting Ventilator Tidal Volume 500 Setting Ventilator Tidal Volume 500 Setting Ventilator Tidal Volume 500 Setting Ventilator Tidal Volume 500 Setting Ventilator Tidal Volume 500 Setting Ventilator Tidal Volume 500 Setting Ventilator Respiratory Rate 20 Setting Ventilator Respiratory Rate 20 Setting Ventilator Respiratory Rate 20 Setting Ventilator Respiratory Rate 20 Setting Ventilator Respiratory Rate 20 Setting Ventilator Respiratory Rate 20 Setting Ventilator Respiratory Rate 20 Setting Ventilator Respiratory Rate 20 Setting Ventilator Respiratory Rate 20 Setting Ventilator Respiratory Rate 20 Setting Actual Respiratory Rate 20 Actual Respiratory Rate 20 Actual Respiratory Rate 20 Actual Respiratory Rate 20 Actual Respiratory Rate 20 Actual Respiratory Rate 20 Actual Respiratory Rate 20 Actual Respiratory Rate 20 Actual Respiratory Rate 20 Positive End Expiratory 5 Pressure Positive End Expiratory 5 Pressure Positive End Expiratory 5 Pressure Positive End Expiratory 5 Pressure Positive End Expiratory 5 Pressure Positive End Expiratory 5 Pressure Positive End Expiratory 5 Pressure Positive End Expiratory 5 Pressure Positive End Expiratory 5 Pressure Positive End Expiratory 5 Pressure Peak Inspiratory Airway 27 Pressure Peak Inspiratory Airway 27 Pressure Peak Inspiratory Airway 28 Pressure Peak Inspiratory Airway 29 Pressure Peak Inspiratory Airway 24 Pressure Peak Inspiratory Airway 28 Pressure Peak Inspiratory Airway 20 Pressure Peak Inspiratory Airway 28 Pressure Peak Inspiratory Airway 28 Pressure Results - Laboratory Findings CBC and BMP: 04/15/17 03:57 04/15/17 03:40 ABG ABG pH 7.50 pH Units (7.32-7.45) H 04/15/17 05:08 ABG pCO2 47 mmHg (35-45) H 04/15/17 05:08 ABG pO2 90 mmHg (85-104) 04/15/17 05:08 ABG O2 Saturation 98 % (95-98) 04/15/17 05:08 PT/INR, D-dimer PT 13.5 Seconds (9.4-12.1) H 04/14/17 06:20 Abnormal lab findings: Abnormal lab results WBC 21.2 K/mcL (4.3-11.1) H 04/15/17 03:57 Hgb 12.8 g/dL (12.9-16.9) L 04/15/17 03:57 RDW 15.4 % (11.5-14.5) H 04/15/17 03:57 Neutrophils # 18.5 K/mcL (1.6-8.9) H 04/15/17 03:57 Monocytes # 1.4 K/mcL (0.0-1.3) H 04/15/17 03:57 Nucleated RBCs/100 WBC 0.1 /100 WBC (0) H 04/15/17 03:57 PT 13.5 Seconds (9.4-12.1) H 04/14/17 06:20 ABG pH 7.50 pH Units (7.32-7.45) H 04/15/17 05:08 ABG pCO2 47 mmHg (35-45) H 04/15/17 05:08 ABG HCO3 36.7 mEQ/L (21-27) H 04/15/17 05:08 ABG Total CO2 38.1 mEq/L (20-26) H 04/15/17 05:08 ABG Base Excess 11.8 mEq/L (-2.0 to 3.0) H 04/15/17 05:08 Sodium 133 mEq/L (136-145) L 04/15/17 03:40 Chloride 95 mEq/L (98-109) L 04/15/17 03:40 Carbon Dioxide 30 mEq/L (19-29) H 04/15/17 03:40 BUN 55 mg/dL (8-26) H D 04/15/17 03:40 Creatinine 1.92 mg/dL (0.72-1.25) H 04/15/17 03:40 Est GFR ( Amer) 41 (> 60) L 04/15/17 03:40 Est GFR (Non-Af Amer) 34 (> 60) L 04/15/17 03:40 BUN/Creatinine Ratio 29 (6-26) H 04/15/17 03:40 Glucose 330 mg/dL (70-99) H 04/15/17 03:40 POC Glucose 302 (58-89) H 04/15/17 05:34 Calculated Osmolality 304 (280-300) H 04/15/17 03:40 Calcium 8.4 mg/dL (8.6-10.8) L 04/15/17 03:40 Phosphorus 5.0 mg/dL (2.3-4.7) H 04/14/17 06:20 Magnesium 2.9 mg/dL (1.6-2.6) H 04/15/17 03:40 Total Bilirubin 1.6 mg/dL (0.2-1.2) H 04/14/17 06:20 Direct Bilirubin 0.8 mg/dL (0.0-0.5) H 04/14/17 06:20 Troponin I 0.08 ng/mL (0-0.03) H* 04/14/17 06:20 B-Natriuretic Peptide 503 pg/mL (0-100) H 04/14/17 02:14 Serum Total Protein 5.2 g/dL (6.0-8.3) L 04/14/17 06:20 Albumin 2.1 g/dL (3.5-5.0) L 04/14/17 06:20 Albumin/Globulin Ratio 0.7 (1.1-2.2) L 04/14/17 06:20 - Microbiology Findings Microbiology Findings: Microbiology, Last 48 Hours 04/14/17 11:55 Legionella Antigen - Final Urine,[place] Streptococcus pneumoniae Antigen (M - Final - Clinical Findings Intake & Output: Intake & Output 04/14/17 04/15/17 04/15/17 23:59 07:59 15:59 Intake Total 728 / 728 835 / 835 101 / 101 Output Total 150 / 150 175 / 175 Balance 578 / 578 660 / 660 101 / 101 Weight 72.2 kg Consult Discharge Plan - Plan Referrals: Kizzy Pena, CRANE MANAGER [Primary Care Provider] -
--- NOTE | 2017-04-15 11:41 | Event Note ---
Date of Encounter: 04/15/17 Time of Encounter: 11:40 Called to bedside to discuss goals of care with the patient's family. Patient' s /POA was present as well as the patient's son. The family asked that we discontinue life-support measures and initiate comfort measures only. CODE STATUS changed to DNR CC. We will proceed with terminal extubation after the patient was made comfortable with opioids and benzodiazepines. Vasopressors will also be discontinued.
[2017-04-15] MEDS: *HR* Morphine 2 MG/ML SYRINGE IVP PRN ×2 (11:55→13:09)
[2017-04-15] MEDS: *HR* LORazepam 2 MG/ML VIAL IVP PRN ×2 (11:55→13:08)
--- NOTE | 2017-04-15 12:19 | Palliative Progress Note ---
Date of Encounter: 04/15/17 Time of Encounter: 12:00 - Assessment and plan (1) Dyspnea and respiratory abnormalities Current Visit: No Status: Acute Assessment and plan: Patient extubated placed on 2L NC. Family at bedside. Appears comfortable. Respirations easy. (2) Goals of care, counseling/discussion Current Visit: Yes Status: Acute Assessment and plan: and Son at bedside. Discussed GOC with transition to comfort care. Provided prayer and family support. Will follow. (3) Pneumonia Current Visit: Yes Status: Acute Assessment and plan: Antibiotics stopped as GOC are for comfort. Qualifiers: Pneumonia type: due to unspecified organism Laterality: unspecified laterality Lung location: unspecified part of lung Qualified Code(s): J18.9 - Pneumonia, unspecified organism (4) Frail elderly Current Visit: Yes Status: Acute (5) CHF (congestive heart failure) Current Visit: No Status: Acute Qualifiers: Congestive heart failure type: unspecified congestive heart failure type Congestive heart failure chronicity: unspecified congestive heart failure chronicity Qualified Code(s): I50.9 - Heart failure, unspecified - Time Spent With Patient Total time spent is greater than 50% in coordination of care (as documented) at patient's floor/unit and/or counseling patient: 25 - 35 minutes - Subjective Interval history: Patient extubated and and son at bedside. Vitals: 70, 20, 61/49 and sats 89 %. Patient calm, eyes closed, respirations easy. Discussed transition to comfort care bed if patient maintains stability. Provided bedside prayer and family support. - Constitutional Vitals: Abnormal lab results WBC 21.2 K/mcL (4.3-11.1) H 04/15/17 03:57 Hgb 12.8 g/dL (12.9-16.9) L 04/15/17 03:57 RDW 15.4 % (11.5-14.5) H 04/15/17 03:57 Neutrophils # 18.5 K/mcL (1.6-8.9) H 04/15/17 03:57 Monocytes # 1.4 K/mcL (0.0-1.3) H 04/15/17 03:57 Nucleated RBCs/100 WBC 0.1 /100 WBC (0) H 04/15/17 03:57 PT 13.5 Seconds (9.4-12.1) H 04/14/17 06:20 ABG pH 7.50 pH Units (7.32-7.45) H 04/15/17 05:08 ABG pCO2 47 mmHg (35-45) H 04/15/17 05:08 ABG HCO3 36.7 mEQ/L (21-27) H 04/15/17 05:08 ABG Total CO2 38.1 mEq/L (20-26) H 04/15/17 05:08 ABG Base Excess 11.8 mEq/L (-2.0 to 3.0) H 04/15/17 05:08 Sodium 133 mEq/L (136-145) L 04/15/17 03:40 Chloride 95 mEq/L (98-109) L 04/15/17 03:40 Carbon Dioxide 30 mEq/L (19-29) H 04/15/17 03:40 BUN 55 mg/dL (8-26) H D 04/15/17 03:40 Creatinine 1.92 mg/dL (0.72-1.25) H 04/15/17 03:40 Est GFR ( Amer) 41 (> 60) L 04/15/17 03:40 Est GFR (Non-Af Amer) 34 (> 60) L 04/15/17 03:40 BUN/Creatinine Ratio 29 (6-26) H 04/15/17 03:40 Glucose 330 mg/dL (70-99) H 04/15/17 03:40 POC Glucose 284 (58-89) H 04/15/17 11:15 Calculated Osmolality 304 (280-300) H 04/15/17 03:40 Calcium 8.4 mg/dL (8.6-10.8) L 04/15/17 03:40 Phosphorus 5.0 mg/dL (2.3-4.7) H 04/14/17 06:20 Magnesium 2.9 mg/dL (1.6-2.6) H 04/15/17 03:40 Total Bilirubin 1.6 mg/dL (0.2-1.2) H 04/14/17 06:20 Direct Bilirubin 0.8 mg/dL (0.0-0.5) H 04/14/17 06:20 Troponin I 0.08 ng/mL (0-0.03) H* 04/14/17 06:20 B-Natriuretic Peptide 503 pg/mL (0-100) H 04/14/17 02:14 Serum Total Protein 5.2 g/dL (6.0-8.3) L 04/14/17 06:20 Albumin 2.1 g/dL (3.5-5.0) L 04/14/17 06:20 Albumin/Globulin Ratio 0.7 (1.1-2.2) L 04/14/17 06:20 - Head Head exam: Present: atraumatic, normal inspection, normocephalic - Eye Eye exam: Present: PERRL - ENT ENT exam: Present: mucous membranes moist - Respiratory Respiratory exam: Present: decreased breath sounds, rhonchi - Expanded Respiratory Exam Location: decreased breath sounds: Left, Right, Lower, rhonchi: Left, Right, Upper - Cardiovascular Cardiovascular exam: Present: RRR, +S1, +S2 - GI/Abdominal GI/Abdominal exam: Present: diminished bowel sounds, soft - Rectal Rectal exam: Present: deferred - Neurological Exam Neurological exam: Present: alert - Psychiatric Psychiatric exam: Present: flat affect - Skin Skin exam: Present: pallor (bilateral feet cool, DP 1+), warm Palliative Quality Palliative Quality: Screen for Code Status: Yes (Comfort Care), Screen for Goals of Care: Yes, Screen for Pain: Yes, If Pain Regimen Started, Initiate Bowel Regimen: No, Screen for Nausea/Vomitting: Yes Code Status: 04/15/17 11:39 CODE [Resuscitation Status: Active] [RES] Routine Comment: Resuscitation Status: DNR-Comfort Care - Labs CBC & Chem 7: 04/15/17 03:57 04/15/17 03:40 Labs: Laboratory Results - last 24 hr 04/14/17 04/14/17 04/15/17 20:20 23:34 03:40 WBC RBC Hgb Hct MCV MCH MCHC RDW Plt Count MPV Immature Gran % Seg Neutrophils % Lymphocytes % Monocytes % Eosinophils % Basophils % Neutrophils # Lymphocytes # Monocytes # Eosinophils # Basophils # Nucleated RBCs/100 WBC Immature Plt Fraction ABG pH ABG pCO2 ABG pO2 ABG HCO3 ABG Total CO2 ABG O2 Saturation ABG Base Excess Blood Gas Modality Inspired O2 Sodium 133 L Potassium 4.0 Chloride 95 L Carbon Dioxide 30 H BUN 55 H D Creatinine 1.92 H Est GFR ( Amer) 41 L Est GFR (Non-Af Amer) 34 L BUN/Creatinine Ratio 29 H Glucose 330 H POC Glucose 389 H 327 H Calculated Osmolality 304 H Calcium 8.4 L Magnesium 2.9 H 04/15/17 04/15/17 04/15/17 03:57 05:08 05:34 WBC 21.2 H RBC 4.48 Hgb 12.8 L Hct 39.4 MCV 87.9 D MCH 28.6 MCHC 32.5 RDW 15.4 H Plt Count 231 MPV 11.2 Immature Gran % 0.8 Seg Neutrophils % 87.1 Lymphocytes % 5.2 Monocytes % 6.7 Eosinophils % 0.0 Basophils % 0.2 Neutrophils # 18.5 H Lymphocytes # 1.1 Monocytes # 1.4 H Eosinophils # 0.0 Basophils # 0.0 Nucleated RBCs/100 WBC 0.1 H Immature Plt Fraction 5.2 ABG pH 7.50 H ABG pCO2 47 H ABG pO2 90 ABG HCO3 36.7 H ABG Total CO2 38.1 H ABG O2 Saturation 98 ABG Base Excess 11.8 H Blood Gas Modality VC Inspired O2 50 Sodium Potassium Chloride Carbon Dioxide BUN Creatinine Est GFR ( Amer) Est GFR (Non-Af Amer) BUN/Creatinine Ratio Glucose POC Glucose 302 H Calculated Osmolality Calcium Magnesium 04/15/17 11:15 WBC RBC Hgb Hct MCV MCH MCHC RDW Plt Count MPV Immature Gran % Seg Neutrophils % Lymphocytes % Monocytes % Eosinophils % Basophils % Neutrophils # Lymphocytes # Monocytes # Eosinophils # Basophils # Nucleated RBCs/100 WBC Immature Plt Fraction ABG pH ABG pCO2 ABG pO2 ABG HCO3 ABG Total CO2 ABG O2 Saturation ABG Base Excess Blood Gas Modality Inspired O2 Sodium Potassium Chloride Carbon Dioxide BUN Creatinine Est GFR ( Amer) Est GFR (Non-Af Amer) BUN/Creatinine Ratio Glucose POC Glucose 284 H Calculated Osmolality Calcium Magnesium - Impressions Impressions Chest X-Ray 04/14/17 05:54 IMPRESSION: 1. The endotracheal tube has its tip approximately 4.6 cm above the elif. 2. The enteric tube has its side port at the GE junction and tip in the fundus. Advancement is suggested. 3. Patchy bilateral airspace disease, atelectasis versus pneumonia. Small pleural effusions. 4. The right IJ catheter has its tip in the superior vena cava. No pneumothorax. D/ / 04/14/2017 07:17:08 Hong Hinds MD / jania Interpreting Provider: Hong Hinds MD X-Ray 04/14/17 05:56 IMPRESSION: 1. The endotracheal tube has its tip approximately 4.6 cm above the elif. 2. The enteric tube has its side port at the GE junction and tip in the fundus. Advancement is suggested. 3. Patchy bilateral airspace disease, atelectasis versus pneumonia. Small pleural effusions. 4. The right IJ catheter has its tip in the superior vena cava. No pneumothorax. D/ / 04/14/2017 07:17:08 Hong Hinds MD / jania Interpreting Provider: Hong Hinds MD - ABG Interpretation ABG results: ABG ABG pH 7.50 pH Units (7.32-7.45) H 04/15/17 05:08 ABG pCO2 47 mmHg (35-45) H 04/15/17 05:08 ABG pO2 90 mmHg (85-104) 04/15/17 05:08 ABG O2 Saturation 98 % (95-98) 04/15/17 05:08 PT/INR, D-dimer PT 13.5 Seconds (9.4-12.1) H 04/14/17 06:20 Consult Discharge Plan - Plan Referrals: Kizzy Pena, REINFORCING BAR SETTER [Primary Care Provider] -
[2017-04-15] MEDS ORDERED: Haloperidol Lactate 5 MG/ML VIAL IVP PRN ×2 (13:18→15:51)
[2017-04-15] MEDS ORDERED: Ondansetron 4 MG/2 ML VIAL IVP PRN (15:21)
[2017-04-15] MEDS ORDERED: *HR* LORazepam 2 MG/ML VIAL IVP PRN (15:21)
[2017-04-15] MEDS ORDERED: *HR* Morphine 2 MG/ML SYRINGE IVP PRN (15:21)
[2017-04-15] MEDS ORDERED: Insulin LISPRO 300 UNITS/3 ML VIAL SQ SCH (21:30)
[2017-04-16] MEDS ORDERED: Insulin LISPRO 300 UNITS/3 ML VIAL SQ SCH
[2017-04-16] MEDS ORDERED: Levofloxacin 750 MG/150 ML 750 MG/150 ML BAG IVPB SCH (04:00)
[2017-04-16] MEDS ORDERED: Lacri-Lube 3.5 GM TUBE BOTH EYES PRN (09:02)
[2017-04-16] MEDS ORDERED: Scopolamine Patch 1.5 MG PATCH.TD72 TD PRN (09:04)
--- NOTE | 2017-04-16 09:13 | Palliative Progress Note ---
Date of Encounter: 04/16/17 Time of Encounter: 08:30 - Assessment and plan (1) Dyspnea and respiratory abnormalities Current Visit: No Status: Acute Assessment and plan: Patient on 2L NC. Family at bedside. Appears comfortable. Respirations easy. Has morphine PRN for dyspnea. Will continue and adjust supplemental O2 as needed. (2) Pain Current Visit: No Status: Acute Assessment and plan: Patient with PRN morphine for pain. None utilized at present. (3) Anxiety Current Visit: No Status: Acute Assessment and plan: Patient has haldol and ativan PRN. Patient has dose of Haldol this AM. Reports being comfortable. (4) Goals of care, counseling/discussion Current Visit: Yes Status: Acute Assessment and plan: at bedside. Discussed GOC with transition to comfort care. Explained inpatient Hospice care and limitations to limited days if patient stabilizes. desires to take patient home but not sure of her ability to provide care. She reports wanting to discuss with her son. I explained that patient could transitioned to GIP in AM and DC'd later once things get set-up at home. Patient verbalizes that he would like to be at home. reports having hospital bed at home. Patient comfortable with morphine dosing prn. Discussed case with Dr. [place]. Plan for GIP in AM if patient mainatains status or transition home with Hospice care if family desires that. (5) Pneumonia Current Visit: Yes Status: Acute Qualifiers: Pneumonia type: due to unspecified organism Laterality: unspecified laterality Lung location: unspecified part of lung Qualified Code(s): J18.9 - Pneumonia, unspecified organism (6) Frail elderly Current Visit: Yes Status: Acute (7) CHF (congestive heart failure) Current Visit: No Status: Acute Qualifiers: Congestive heart failure type: unspecified congestive heart failure type Congestive heart failure chronicity: unspecified congestive heart failure chronicity Qualified Code(s): I50.9 - Heart failure, unspecified - Time Spent With Patient Total time spent is greater than 50% in coordination of care (as documented) at patient's floor/unit and/or counseling patient: - Subjective Interval history: Patient in bed, awakens easy. Alert and able to hold meaningful conversation, Leora at bedside. Discussed transition to inpatient Hospice care tomorrow or would she like to take patient home with Hospice. She would like to take patient home but she needs to discuss this with her son. Patient with multiple episodes of pneumonia and only desires comfort care. - Constitutional Vitals: Abnormal lab results WBC 21.2 K/mcL (4.3-11.1) H 04/15/17 03:57 Hgb 12.8 g/dL (12.9-16.9) L 04/15/17 03:57 RDW 15.4 % (11.5-14.5) H 04/15/17 03:57 Neutrophils # 18.5 K/mcL (1.6-8.9) H 04/15/17 03:57 Monocytes # 1.4 K/mcL (0.0-1.3) H 04/15/17 03:57 Nucleated RBCs/100 WBC 0.1 /100 WBC (0) H 04/15/17 03:57 PT 13.5 Seconds (9.4-12.1) H 04/14/17 06:20 ABG pH 7.50 pH Units (7.32-7.45) H 04/15/17 05:08 ABG pCO2 47 mmHg (35-45) H 04/15/17 05:08 ABG HCO3 36.7 mEQ/L (21-27) H 04/15/17 05:08 ABG Total CO2 38.1 mEq/L (20-26) H 04/15/17 05:08 ABG Base Excess 11.8 mEq/L (-2.0 to 3.0) H 04/15/17 05:08 Sodium 133 mEq/L (136-145) L 04/15/17 03:40 Chloride 95 mEq/L (98-109) L 04/15/17 03:40 Carbon Dioxide 30 mEq/L (19-29) H 04/15/17 03:40 BUN 55 mg/dL (8-26) H D 04/15/17 03:40 Creatinine 1.92 mg/dL (0.72-1.25) H 04/15/17 03:40 Est GFR ( Amer) 41 (> 60) L 04/15/17 03:40 Est GFR (Non-Af Amer) 34 (> 60) L 04/15/17 03:40 BUN/Creatinine Ratio 29 (6-26) H 04/15/17 03:40 Glucose 330 mg/dL (70-99) H 04/15/17 03:40 POC Glucose 284 (58-89) H 04/15/17 11:15 Calculated Osmolality 304 (280-300) H 04/15/17 03:40 Calcium 8.4 mg/dL (8.6-10.8) L 04/15/17 03:40 Phosphorus 5.0 mg/dL (2.3-4.7) H 04/14/17 06:20 Magnesium 2.9 mg/dL (1.6-2.6) H 04/15/17 03:40 Total Bilirubin 1.6 mg/dL (0.2-1.2) H 04/14/17 06:20 Direct Bilirubin 0.8 mg/dL (0.0-0.5) H 04/14/17 06:20 Troponin I 0.08 ng/mL (0-0.03) H* 04/14/17 06:20 B-Natriuretic Peptide 503 pg/mL (0-100) H 04/14/17 02:14 Serum Total Protein 5.2 g/dL (6.0-8.3) L 04/14/17 06:20 Albumin 2.1 g/dL (3.5-5.0) L 04/14/17 06:20 Albumin/Globulin Ratio 0.7 (1.1-2.2) L 04/14/17 06:20 - Head Head exam: Present: atraumatic, normal inspection, normocephalic - Eye Eye exam: Present: PERRL Pupils: Present: PERRL - ENT ENT exam: Present: mucous membranes moist - Neck Neck exam: Present: full ROM - Respiratory Respiratory exam: Present: decreased breath sounds, rhonchi (scattered) - Expanded Respiratory Exam Location: decreased breath sounds: Left, Right, Lower, rhonchi: Left, Right, Upper - Cardiovascular Cardiovascular exam: Present: RRR, +S1, +S2 - Expanded Cardiovascular Exam Peripheral pulses: 1+: Femoral (L) PM, Femoral (R) PM, Posterior Tibialis (L), Posterior Tibialis (R), Dorsalis Pedis (L) PM, Dorsalis Pedis (R) PM (bilateral feet cool), 2+: Carotid (L) PM, Carotid (R) PM, Radial (L), Radial (R) - GI/Abdominal GI/Abdominal exam: Present: diminished bowel sounds - Rectal Rectal exam: Present: deferred - Extremities Exam Extremities exam: Present: tenderness - Back Exam Back exam: Present: tenderness - Neurological Exam Neurological exam: Present: alert (oriented to person only) - Psychiatric Psychiatric exam: Present: normal affect - Skin Skin exam: Present: pallor, petechiae Palliative Quality Palliative Quality: Screen for Code Status: Yes (Comfort Care), Screen for Goals of Care: Yes, Screen for Pain: Yes, If Pain Regimen Started, Initiate Bowel Regimen: No, Screen for Nausea/Vomitting: Yes Code Status: 04/15/17 11:39 CODE [Resuscitation Status: Active] [RES] Routine Comment: Resuscitation Status: DNR-Comfort Care - Labs CBC & Chem 7: 04/15/17 03:57 04/15/17 03:40 Labs: Laboratory Results - last 24 hr 04/15/17 11:15 POC Glucose 284 H - ABG Interpretation ABG results: ABG ABG pH 7.50 pH Units (7.32-7.45) H 04/15/17 05:08 ABG pCO2 47 mmHg (35-45) H 04/15/17 05:08 ABG pO2 90 mmHg (85-104) 04/15/17 05:08 ABG O2 Saturation 98 % (95-98) 04/15/17 05:08 PT/INR, D-dimer PT 13.5 Seconds (9.4-12.1) H 04/14/17 06:20 Consult Discharge Plan - Plan Referrals: Kizzy Pena, MAINTENANCE TECH [Primary Care Provider] -
[2017-04-16] MEDS: *HR* Morphine 2 MG/ML SYRINGE IVP PRN ×5 (09:33→21:11)
[2017-04-16] MEDS: *HR* LORazepam 2 MG/ML VIAL IVP PRN ×2 (09:33→15:52)
--- NOTE | 2017-04-16 09:39 | Internal Med Progress Note ---
Date of Encounter: 04/16/17 Time of Encounter: 09:30 - Assessment and plan (1) Acute respiratory failure Current Visit: Yes Status: Acute Assessment and plan: Patient has multiple chronic medical problems along with poor baseline function al status and has been treated initially in the ICU for Pneumonia, septic shock , acute respiratory failure and renal failure, has been intubated and been on vasopressors with broad spectrum IV antibiotics. Family has now opted for comfort care measures only due to his guarded/poor prognosis. Palliative care team is on board; will continue IV Ativan, Haldol and Morphine for symptom relief and pain management, and monitor closely. Plan is for him to be switched to inpatient Hospice vs Home hospice in am. No more lab draws or aggressive medical management. Code status DNR-CC; Qualifiers: Respiratory failure complication: hypoxia Qualified Code(s): J96.01 - Acute respiratory failure with hypoxia (2) Pneumonia Current Visit: Yes Status: Acute Qualifiers: Pneumonia type: due to unspecified organism Laterality: unspecified laterality Lung location: unspecified part of lung Qualified Code(s): J18.9 - Pneumonia, unspecified organism (3) Acute kidney injury Current Visit: Yes Status: Acute (4) Septic shock Current Visit: Yes Status: Resolved - Subjective Interval history: Lying in bed, noncommunicative; on comfort care measures; awaiting transition to Hospice care at home; - Constitutional Vitals: Temp Pulse Resp BP Pulse Ox 98.1 F 86 10 95/53 96 04/16/17 07:14 04/16/17 07:14 04/16/17 07:14 04/16/17 07:14 04/16/17 07:14 General appearance: Present: A&O X 0 (occasional grunting but no response to verbal or tactile stimulus ) - Respiratory Respiratory exam: Present: CTAB (anterolaterally B/L). Absent: accessory muscle use, rales, rhonchi, wheezes - Cardiovascular Cardiovascular exam: Present: RRR, +S1, +S2. Absent: diastolic murmur, gallop, rubs, systolic murmur Internal Medicine: Result - Labs CBC & Chem 7: 04/15/17 03:57 04/15/17 03:40 - ABG Interpretation ABG results: ABG ABG pH 7.50 pH Units (7.32-7.45) H 04/15/17 05:08 ABG pCO2 47 mmHg (35-45) H 04/15/17 05:08 ABG pO2 90 mmHg (85-104) 04/15/17 05:08 ABG O2 Saturation 98 % (95-98) 04/15/17 05:08 PT/INR, D-dimer PT 13.5 Seconds (9.4-12.1) H 04/14/17 06:20 Consult Discharge Plan - Plan Referrals: Kizzy Pena, CRANKSHAFT BALANCER [Primary Care Provider] - (web request sent on 04/16/17)
[2017-04-16] MEDS ORDERED: Acetaminophen 650 MG RECTAL SUPP RC PRN (15:07)
[2017-04-17] MEDS: *HR* Morphine 2 MG/ML SYRINGE IVP PRN ×2 (07:33→11:53)
[2017-04-17] MEDS: *HR* LORazepam 2 MG/ML VIAL IVP PRN (08:46)
--- NOTE | 2017-04-17 10:06 | Palliative Progress Note ---
Date of Encounter: 04/17/17 Time of Encounter: 10:03 - Assessment and plan (1) Dyspnea and respiratory abnormalities Current Visit: Yes Status: Acute Assessment and plan: Supplemental oxygen at 2 L/m via nasal cannula. He is resting comfortable and responds well to PRN medications. He has used a total of 6 doses of morphine for dyspnea and pain. Position for comfort. Scopolamine patch for terminal secretions. (2) Anxiety Current Visit: No Status: Acute Assessment and plan: Lorazepam as needed for anxiety or agitation. Mr. Alegria has required 2 doses in the past 24 hours. Continue to monitor. Family at bedside. Spiritual support offered and declined. (3) Pain Current Visit: No Status: Acute Assessment and plan: Morphine as needed for pain. Mr. Alegria responds well to the Morphine. Continue to follow. (4) Goals of care, counseling/discussion Current Visit: Yes Status: Acute Assessment and plan: Discussed goals of care with Mrs. Alegria. She would like to take her spouse home and care for him with the assistance of hospice. She is unsure if the transition home will be possible today. Current plan is for her to discuss care with her son and we will meet this afternoon to set plan in place. Likely discharge home tomorrow with hospice care. Follow-up conversation with patient's family. Goal will be to transition home with hospice services if medically stable tomorrow. Referral called to [facility] (Ayana Hutchins RN) at 13:57. Mr. Alegria's PCP had already made a referral to [facility] on 04/13/17. (5) Pneumonia Current Visit: Yes Status: Acute Qualifiers: Pneumonia type: aspiration pneumonia Aspiration pneumonia type: unspecified Laterality: right Lung location: lower lobe of lung Qualified Code(s): J69.0 - Pneumonitis due to inhalation of food and vomit (6) Frail elderly Current Visit: Yes Status: Acute (7) CHF (congestive heart failure) Current Visit: No Status: Acute Qualifiers: Congestive heart failure type: unspecified congestive heart failure type Congestive heart failure chronicity: unspecified congestive heart failure chronicity Qualified Code(s): I50.9 - Heart failure, unspecified - Time Spent With Patient Total time spent is greater than 50% in coordination of care (as documented) at patient's floor/unit and/or counseling patient: - Subjective Interval history: Mr. Alegria is lying in bed with family at bedside. RN reports period of restlessness and moaning this morning and a dose of morphine/ativan was given with good response. He is currently lying in bed, resting with eyes closed. - Constitutional Vitals: Abnormal lab results WBC 21.2 K/mcL (4.3-11.1) H 04/15/17 03:57 Hgb 12.8 g/dL (12.9-16.9) L 04/15/17 03:57 RDW 15.4 % (11.5-14.5) H 04/15/17 03:57 Neutrophils # 18.5 K/mcL (1.6-8.9) H 04/15/17 03:57 Monocytes # 1.4 K/mcL (0.0-1.3) H 04/15/17 03:57 Nucleated RBCs/100 WBC 0.1 /100 WBC (0) H 04/15/17 03:57 PT 13.5 Seconds (9.4-12.1) H 04/14/17 06:20 ABG pH 7.50 pH Units (7.32-7.45) H 04/15/17 05:08 ABG pCO2 47 mmHg (35-45) H 04/15/17 05:08 ABG HCO3 36.7 mEQ/L (21-27) H 04/15/17 05:08 ABG Total CO2 38.1 mEq/L (20-26) H 04/15/17 05:08 ABG Base Excess 11.8 mEq/L (-2.0 to 3.0) H 04/15/17 05:08 Sodium 133 mEq/L (136-145) L 04/15/17 03:40 Chloride 95 mEq/L (98-109) L 04/15/17 03:40 Carbon Dioxide 30 mEq/L (19-29) H 04/15/17 03:40 BUN 55 mg/dL (8-26) H D 04/15/17 03:40 Creatinine 1.92 mg/dL (0.72-1.25) H 04/15/17 03:40 Est GFR ( Amer) 41 (> 60) L 04/15/17 03:40 Est GFR (Non-Af Amer) 34 (> 60) L 04/15/17 03:40 BUN/Creatinine Ratio 29 (6-26) H 04/15/17 03:40 Glucose 330 mg/dL (70-99) H 04/15/17 03:40 POC Glucose 284 (58-89) H 04/15/17 11:15 Calculated Osmolality 304 (280-300) H 04/15/17 03:40 Calcium 8.4 mg/dL (8.6-10.8) L 04/15/17 03:40 Phosphorus 5.0 mg/dL (2.3-4.7) H 04/14/17 06:20 Magnesium 2.9 mg/dL (1.6-2.6) H 04/15/17 03:40 Total Bilirubin 1.6 mg/dL (0.2-1.2) H 04/14/17 06:20 Direct Bilirubin 0.8 mg/dL (0.0-0.5) H 04/14/17 06:20 Troponin I 0.08 ng/mL (0-0.03) H* 04/14/17 06:20 B-Natriuretic Peptide 503 pg/mL (0-100) H 04/14/17 02:14 Serum Total Protein 5.2 g/dL (6.0-8.3) L 04/14/17 06:20 Albumin 2.1 g/dL (3.5-5.0) L 04/14/17 06:20 Albumin/Globulin Ratio 0.7 (1.1-2.2) L 04/14/17 06:20 General appearance: Absent: cooperative Exam: 81 year old male patient appearing chronically ill. He is unresponsive with family at bedside. - ENT ENT exam: Present: mucous membranes dry - Respiratory Respiratory exam: Present: decreased breath sounds (shallow) Additional comments: Respiratory rate 8-10 with 10-15 seconds of apnea occurring every 2-3 minutes. - Cardiovascular Cardiovascular exam: Present: irregular rhythm, RRR (apical rate 88) - GI/Abdominal GI/Abdominal exam: Present: hypoactive bowel sounds, soft. Absent: tenderness - Extremities Exam Additional comments: mild peripheral edema. - Neurological Exam Neurological exam: Absent: alert - Psychiatric Psychiatric exam: Absent: agitated, anxious - Skin Skin exam: Present: dry, warm. Absent: mottled Palliative Quality Palliative Quality: Screen for Code Status: Yes (Comfort Care), Screen for Goals of Care: Yes, Screen for Pain: Yes, If Pain Regimen Started, Initiate Bowel Regimen: No, Screen for Nausea/Vomitting: Yes Code Status: 04/15/17 11:39 CODE [Resuscitation Status: Active] [RES] Routine Comment: Resuscitation Status: DNR-Comfort Care - Labs CBC & Chem 7: 04/15/17 03:57 04/15/17 03:40 - ABG Interpretation ABG results: ABG ABG pH 7.50 pH Units (7.32-7.45) H 04/15/17 05:08 ABG pCO2 47 mmHg (35-45) H 04/15/17 05:08 ABG pO2 90 mmHg (85-104) 04/15/17 05:08 ABG O2 Saturation 98 % (95-98) 04/15/17 05:08 PT/INR, D-dimer PT 13.5 Seconds (9.4-12.1) H 04/14/17 06:20 Consult Discharge Plan - Plan Referrals: Kizzy Pena, COMPUTATIONAL THEORY SCIENTIST [Primary Care Provider] - (palli patient possible out patient hospice)
[2017-04-17] MEDS ORDERED: *HR* LORazepam 2 MG/ML VIAL IVP PRN (12:17)
--- NOTE | 2017-04-17 12:18 | Internal Med Progress Note ---
Date of Encounter: 04/17/17 Time of Encounter: 12:00 - Assessment and plan (1) Acute respiratory failure Current Visit: Yes Status: Acute Assessment and plan: Patient has multiple chronic medical problems along with poor baseline function al status and has been treated initially in the ICU for Pneumonia, septic shock , acute respiratory failure and renal failure, has been intubated and been on vasopressors with broad spectrum IV antibiotics. Family has now opted for comfort care measures only due to his guarded/poor prognosis. Palliative care team is on board; Continue when necessary IV Ativan, Haldol along with IV morphine. Scopolamine patch for secretions. Supportive care. Patient is requiring when necessary straight catheterization for urinary retention. Code status DNR-CC; Plan of care discussed with his at bedside, anticipate discharge in a.m., probably to home under hospice care. Qualifiers: Respiratory failure complication: hypoxia Qualified Code(s): J96.01 - Acute respiratory failure with hypoxia (2) Pneumonia Current Visit: Yes Status: Acute Qualifiers: Pneumonia type: due to unspecified organism Laterality: unspecified laterality Lung location: unspecified part of lung Qualified Code(s): J18.9 - Pneumonia, unspecified organism (3) Acute kidney injury Current Visit: Yes Status: Acute (4) Septic shock Current Visit: Yes Status: Resolved - Subjective Interval history: Lying in bed, noncommunicative; on comfort care measures; occasional moaning and grunting; plan of care d/w patient's at bedside; - Constitutional Vitals: Temp Pulse Resp BP Pulse Ox 97.2 F L 99 17 95/58 93 04/17/17 08:02 04/17/17 08:02 04/17/17 08:02 04/17/17 08:02 04/17/17 08:02 General appearance: Present: A&O X 0 (occasional grunting but no response to verbal or tactile stimulus ) - Respiratory Respiratory exam: Present: CTAB (coarse breath sounds B/L anerolaterally). Absent: accessory muscle use, rales, rhonchi, wheezes - Cardiovascular Cardiovascular exam: Present: RRR, +S1, +S2, tachycardia. Absent: diastolic murmur, gallop, rubs, systolic murmur Internal Medicine: Result - Labs CBC & Chem 7: 04/15/17 03:57 04/15/17 03:40 - ABG Interpretation ABG results: ABG ABG pH 7.50 pH Units (7.32-7.45) H 04/15/17 05:08 ABG pCO2 47 mmHg (35-45) H 04/15/17 05:08 ABG pO2 90 mmHg (85-104) 04/15/17 05:08 ABG O2 Saturation 98 % (95-98) 04/15/17 05:08 PT/INR, D-dimer PT 13.5 Seconds (9.4-12.1) H 04/14/17 06:20 Consult Discharge Plan - Plan Referrals: Kizzy Pena, COMPOSITION WEATHERBOARD APPLIER [Primary Care Provider] - (palli patient possible out patient hospice)
[2017-04-17] MEDS ORDERED: Haloperidol Oral Conc 10 MG/5 ML UDC PO PRN (15:19)
--- NOTE | 2017-04-17 17:08 | Electrocardiograph Report ---
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
[2017-04-17] MEDS: *HR* LORazepam Oral Conc 2 MG/ML SL PRN (17:48)
[2017-04-17] MEDS: Morphine Oral CONC 5 MG/0.25 ML ORAL.SYG PO PRN ×2 (17:54→18:50)
[2017-04-17 19:56] VITALS: BP 71/42
[2017-04-18] MEDS: Morphine Oral CONC 5 MG/0.25 ML ORAL.SYG PO PRN ×4 (04:05→10:40)
[2017-04-18] MEDS: *HR* LORazepam Oral Conc 2 MG/ML SL PRN ×2 (04:48→11:28)
--- NOTE | 2017-04-18 08:54 | Palliative Progress Note ---
Date of Encounter: 04/18/17 Time of Encounter: 08:49 - Assessment and plan (1) Dyspnea and respiratory abnormalities Current Visit: Yes Status: Acute Assessment and plan: Supplemental oxygen at 2 L/m via nasal cannula. He is resting comfortable and responds well to PRN medications. He has used a total of 7 doses of morphine for dyspnea and pain. Position for comfort. Scopolamine patch for terminal secretions. (2) Anxiety Current Visit: Yes Status: Acute Assessment and plan: Lorazepam as needed for anxiety or agitation. Mr. Alegria has required 4 doses in the past 24 hours. Continue to monitor. Family at bedside. Spiritual support offered and declined. (3) Pain Current Visit: Yes Status: Acute Assessment and plan: Mr. Alegria is unresponsive and does not follow commands, but has periods of moaning and agitation. Morphine as needed for pain. Mr. Alegria responds well to the Morphine. Continue to follow. (4) Goals of care, counseling/discussion Current Visit: Yes Status: Acute Assessment and plan: Awaiting decision from family regarding care. Discussed the risks/benefits of transitioning care to the home. Mr. Alegria responds well to the comfort medications. Disposition pending. Update: Mr. Alegria continues to have periods of restlessness and agitation. He requires straight cath for urinary retention and cannot tolerate an indwelling dillon catheter. Decision made to transition to [facility] for managment of urinary retention, pain, and anxiety. (5) Pneumonia Current Visit: Yes Status: Acute Qualifiers: Pneumonia type: aspiration pneumonia Aspiration pneumonia type: unspecified Laterality: right Lung location: lower lobe of lung Qualified Code(s): J69.0 - Pneumonitis due to inhalation of food and vomit (6) Frail elderly Current Visit: Yes Status: Acute (7) CHF (congestive heart failure) Current Visit: No Status: Acute Qualifiers: Congestive heart failure type: unspecified congestive heart failure type Congestive heart failure chronicity: unspecified congestive heart failure chronicity Qualified Code(s): I50.9 - Heart failure, unspecified - Time Spent With Patient Total time spent is greater than 50% in coordination of care (as documented) at patient's floor/unit and/or counseling patient: - Subjective Interval history: Mr. Alegria is lying in bed with family at bedside. He is unresponsive. Respirations are shallow and 10/min. Apical heart rate is 90 and regular. He has used 4 doses of lorazepam for anxiety/agitation, and 7 doses of morphine over the past 24 hours for dyspnea. - Constitutional Vitals: Abnormal lab results WBC 21.2 K/mcL (4.3-11.1) H 04/15/17 03:57 Hgb 12.8 g/dL (12.9-16.9) L 04/15/17 03:57 RDW 15.4 % (11.5-14.5) H 04/15/17 03:57 Neutrophils # 18.5 K/mcL (1.6-8.9) H 04/15/17 03:57 Monocytes # 1.4 K/mcL (0.0-1.3) H 04/15/17 03:57 Nucleated RBCs/100 WBC 0.1 /100 WBC (0) H 04/15/17 03:57 PT 13.5 Seconds (9.4-12.1) H 04/14/17 06:20 ABG pH 7.50 pH Units (7.32-7.45) H 04/15/17 05:08 ABG pCO2 47 mmHg (35-45) H 04/15/17 05:08 ABG HCO3 36.7 mEQ/L (21-27) H 04/15/17 05:08 ABG Total CO2 38.1 mEq/L (20-26) H 04/15/17 05:08 ABG Base Excess 11.8 mEq/L (-2.0 to 3.0) H 04/15/17 05:08 Sodium 133 mEq/L (136-145) L 04/15/17 03:40 Chloride 95 mEq/L (98-109) L 04/15/17 03:40 Carbon Dioxide 30 mEq/L (19-29) H 04/15/17 03:40 BUN 55 mg/dL (8-26) H D 04/15/17 03:40 Creatinine 1.92 mg/dL (0.72-1.25) H 04/15/17 03:40 Est GFR ( Amer) 41 (> 60) L 04/15/17 03:40 Est GFR (Non-Af Amer) 34 (> 60) L 04/15/17 03:40 BUN/Creatinine Ratio 29 (6-26) H 04/15/17 03:40 Glucose 330 mg/dL (70-99) H 04/15/17 03:40 POC Glucose 284 (58-89) H 04/15/17 11:15 Calculated Osmolality 304 (280-300) H 04/15/17 03:40 Calcium 8.4 mg/dL (8.6-10.8) L 04/15/17 03:40 Phosphorus 5.0 mg/dL (2.3-4.7) H 04/14/17 06:20 Magnesium 2.9 mg/dL (1.6-2.6) H 04/15/17 03:40 Total Bilirubin 1.6 mg/dL (0.2-1.2) H 04/14/17 06:20 Direct Bilirubin 0.8 mg/dL (0.0-0.5) H 04/14/17 06:20 Troponin I 0.08 ng/mL (0-0.03) H* 04/14/17 06:20 B-Natriuretic Peptide 503 pg/mL (0-100) H 04/14/17 02:14 Serum Total Protein 5.2 g/dL (6.0-8.3) L 04/14/17 06:20 Albumin 2.1 g/dL (3.5-5.0) L 04/14/17 06:20 Albumin/Globulin Ratio 0.7 (1.1-2.2) L 04/14/17 06:20 Exam: 81 year old male appearing at end of life. He is unresponsive and family is at bedside. Respirations are regular and shallow with a rate of 10/min. Apical rate is 90 and regular. Skin is warm with no evidence of mottling. - Respiratory Respiratory exam: Present: decreased breath sounds Additional comments: shallow respirations, no apnea noted during assessment. - Cardiovascular Cardiovascular exam: Present: RRR (apical rate 90). Absent: tachycardia - GI/Abdominal GI/Abdominal exam: Present: hypoactive bowel sounds, soft. Absent: rigid, tenderness - Extremities Exam Extremities exam: Present: pedal edema (lower extremity edema) - Neurological Exam Neurological exam: Absent: alert - Psychiatric Psychiatric exam: Absent: agitated, anxious - Skin Skin exam: Present: erythema (to bilateral lower extremities (chronic)), warm. Absent: mottled Palliative Quality Palliative Quality: Screen for Code Status: Yes (Comfort Care), Screen for Goals of Care: Yes, Screen for Pain: Yes, If Pain Regimen Started, Initiate Bowel Regimen: No, Screen for Nausea/Vomitting: Yes Code Status: 04/15/17 11:39 CODE [Resuscitation Status: Active] [RES] Routine Comment: Resuscitation Status: DNR-Comfort Care - Labs CBC & Chem 7: 04/15/17 03:57 04/15/17 03:40 - ABG Interpretation ABG results: ABG ABG pH 7.50 pH Units (7.32-7.45) H 04/15/17 05:08 ABG pCO2 47 mmHg (35-45) H 04/15/17 05:08 ABG pO2 90 mmHg (85-104) 04/15/17 05:08 ABG O2 Saturation 98 % (95-98) 04/15/17 05:08 PT/INR, D-dimer PT 13.5 Seconds (9.4-12.1) H 04/14/17 06:20 Consult Discharge Plan - Plan Referrals: Kizzy Pena, COMMUNICATIONS COORDINATOR [Primary Care Provider] - (palli patient possible out patient hospice)
--- NOTE | 2017-04-18 10:19 | Event Note ---
Date of Encounter: 04/18/17 Time of Encounter: 10:17 Hospice medical dermatologist certification of terminal illness: Hospice benefit. Start: 04/18/2017 Hospice benefit. In: +90 days Palliative performance scale: 20-30% History: She with pneumonia respiratory failure and congestive heart failure nO longer seeking to have aggressive treatment. The patient also has his comorbidities CVA and hypertension. Agent has been declining rapidly since his extubation, I therefore believe that These findings support a life expectancy of 6 months or less. I attest that I have compose the above narrative based on my review of the patient's medical records, and or on my examination of the patient. Paul Carballo M.D. Associate certified medical records coder. [facility]
--- NOTE | 2017-04-18 10:30 | Discharge Summary ---
Date of Encounter: 04/18/17 Time of Encounter: 10:28 - Discharge Diagnosis (1) Acute respiratory failure Priority: Primary Status: Acute Qualifiers: Respiratory failure complication: hypoxia Qualified Code(s): J96.01 - Acute respiratory failure with hypoxia (2) Pneumonia Priority: Primary Status: Acute Qualifiers: Pneumonia type: due to unspecified organism Laterality: unspecified laterality Lung location: unspecified part of lung Qualified Code(s): J18.9 - Pneumonia, unspecified organism (3) Acute kidney injury Priority: Primary Status: Acute (4) Septic shock Priority: Primary Status: Resolved - Discharge Medications Home Medications: Aspirin 81 mg PO DAILY 02/27/17 [History] Losartan [Cozaar] 25 mg PO DAILY 02/27/17 [History] Propranolol HCl [Innopran Xl] 80 mg PO BID 02/27/17 [History] Simvastatin [Zocor] 40 mg PO HS 02/27/17 [History] hydrOXYzine HCl [Hydroxyzine HCl] 25 mg PO BID PRN 02/27/17 [History] Albuterol Neb [Proventil Neb] 2.5 mg IH TID PRN 03/16/17 [History] Docusate [Colace] 100 mg PO BID PRN 03/16/17 [History] Oxygen 1 each .ROUTE AD 03/16/17 [History] Furosemide [Lasix] 20 mg PO DAILY #30 tablet 03/18/17 [Rx] Torsemide [Demadex] 10 mg PO DAILY PRN 04/14/17 [History] Allergies/Adverse Reactions: Allergies chocolate flavor Allergy (Verified 04/14/17 10:35) Anaphylaxis egg Allergy (Verified 04/14/17 10:35) Anaphylaxis milk Allergy (Verified 04/14/17 10:35) Anaphylaxis Sulfa (Sulfonamide Antibiotics) Allergy (Verified 03/15/17 22:04) Hives Date of admission: 04/14/17 05:31 Primary care physician: Kizzy Pena CNP Consults: 04/14/17 11:26 Consult to Palliative Care [CONS] Stat Comment: Consulting Provider: Palliative Care Denise Reason for Consult: GOC Call Completed: Yes 04/16/17 12:04 Consult to Demand Generation Manager [CONS] Routine Reason for SW Consult: discharge planning for possible hospice versus other Discharging clinician: Nicole Boston Anticipated date of discharge: 04/18/17 - Patient Status Disposition: Hospice - Home Condition: Critical Functional capacity at discharge: bed bound Overall status at discharge: patient is not back to baseline - Discharge Instructions Follow Up With: Kizzy Pena CNP [Primary Care Provider] - (palli patient possible out patient hospice) Hospital course: Mr. Alegria is a 81 year old male with poor baseline function; status, admitted to ICU initially for acute respiratory failure, septic shock, aspiration Pneumonia and was noted to have worsening renal function although his shock resolved. He underwent intubation initially and after d/w family and given his poor overall prognosis, terminal extubation was done and patient was transferred to medical floor under Comfort care measures. Patient was followed by Palliative care team while on the floor and patient's family initially opted to take him home under Hospice care, but today has decided to transfer him to inpatient Hospice given the possibility of limited time of survival due to shallow and slow breathing and being poorly responsive. He is currently being discharged from Hospitalist service for further care by Palliative care team. - Time Spent with Patient Total time spent providing and/or coordinating discharge services: Greater than 30 minutes (45 min) - Constitutional Vitals: Temp Pulse Resp BP Pulse Ox 97.9 F 94 12 71/42 90 04/17/17 19:55 04/17/17 19:55 04/17/17 19:55 04/17/17 19:55 04/17/17 19:55 General appearance: Present: A&O X 0 (shallow breathing, occasional right UE movements) - Respiratory Respiratory exam: Present: CTAB (decreased and shallow RR). Absent: accessory muscle use, rales, rhonchi, wheezes - Cardiovascular Cardiovascular exam: Present: RRR, +S1, +S2. Absent: diastolic murmur, gallop, rubs, systolic murmur
== END 2017-04-18 12:08 | disposition hospice, home (50) | DRG 871 ==
LOC: EMEROO 01:41 → 2ANU 01:41 → ICNU 05:25 → SUATTDRO 05:31 → 2ANU 04-15 14:56
PROVIDERS: ADMIT Hospitalist; ATTEND Internal Medicine

== ENCOUNTER 2017-04-18 11:20 | Inpatient (IN) ==
--- NOTE | 2017-04-18 11:29 | Palliative - Consult Note ---
Date of Encounter: 04/18/17 Time of Encounter: 11:27 - Assessment and Plan (1) Dyspnea and respiratory abnormalities Status: Acute Assessment and plan: Continue with oral morphine concentrate 5mg every hour as needed. Mr. Alegria has required escalated doses and frequencies of morphine over the last 48 hours. Continue to monitor. Scopolamine patch for terminal secretions. (2) Anxiety Status: Acute Assessment and plan: Continue with lorazepam 1mg every 2 hours as needed. Mr. Alegria has required increase in dose frequency over the past 24 hours. Continue to follow. (3) Goals of care, counseling/discussion Status: Acute Assessment and plan: Mr. Alegria appears to be at end of life. He is under general in-patient hospice status for symptom management of urinary retention (unable to tolerate a dillon), pain, and agitation/anxiety. Discussed plan of care including medications with family. Report understanding of risks/benefits/indications of treatment plan. Given his physical exam, he is not expected to survive long. His level of care is unable to be provided at home. (4) Pain Status: Acute Assessment and plan: Mr. Alegria is unable to verbalize pain, but has periods of moaning and agitation. He responds well to oral morphine concentrate. Continue to monitor. (5) Acute and chronic respiratory failure Status: Acute Qualifiers: Respiratory failure complication: hypercapnia Qualified Code(s): J96.22 - Acute and chronic respiratory failure with hypercapnia Palliative-CN HPI - Data of Consult Patient: known to practice within the last 3 years Consult date: 04/18/17 Requesting Physician: Paul Carballo MD - Consult Narrative Palliative Care/Comfort Measures: Palliative care Reason for consult: Symptom Management History of present illness: Mr. Alegria is a 81 year old male patient with a recent admission pneumonia and respiratory failure that required mechanical ventilation. He was compassionately liberated from the ventilator on 04/15/2017, and focus shifted to comfort care. Mr. Alegria has required escalated doses of both oral morphine and lorazepam to maintain comfort. He is unable to empty his bladder and requires staff to straight cath him every 8 hours as he cannot tolerate an indwelling dillon catheter. Mr. Alegria is unresponsive and unable to follow commands. His care requires skill that cannot be provided in the home including medication management, catheterizations, and wound care. CC: Paul Carballo MD Past Med Surg Social Fam HX - Past Medical History Source: old records reviewed, obtained from family Medical history: asthma, CVA, hypertension, other (PN, Respiratory failure) Psychiatric history: no psych history - Past Surgical History Surgical History: other (lumbar x 2) - Social History Smoking Status: Current some day smoker Smokeless Tobacco Status: No Alcohol use: none Drug use: none Current living situation: Home, With Family Activity Level: Bed bound Medications and Allergies Aspirin 81 mg PO DAILY 02/27/17 [History] Losartan [Cozaar] 25 mg PO DAILY 02/27/17 [History] Propranolol HCl [Innopran Xl] 80 mg PO BID 02/27/17 [History] Simvastatin [Zocor] 40 mg PO HS 02/27/17 [History] hydrOXYzine HCl [Hydroxyzine HCl] 25 mg PO BID PRN 02/27/17 [History] Albuterol Neb [Proventil Neb] 2.5 mg IH TID PRN 03/16/17 [History] Docusate [Colace] 100 mg PO BID PRN 03/16/17 [History] Oxygen 1 each .ROUTE AD 03/16/17 [History] Furosemide [Lasix] 20 mg PO DAILY #30 tablet 03/18/17 [Rx] Torsemide [Demadex] 10 mg PO DAILY PRN 04/14/17 [History] Allergies chocolate flavor Allergy (Verified 04/14/17 10:35) Anaphylaxis egg Allergy (Verified 04/14/17 10:35) Anaphylaxis milk Allergy (Verified 04/14/17 10:35) Anaphylaxis Sulfa (Sulfonamide Antibiotics) Allergy (Verified 03/15/17 22:04) Hives ROS unobtainable: due to mental status Palliative Care-Exam - Constitutional Exam: 81 year old male appearing at end of life, unresponsive with periodic agitation , unable to follow commands and non-verbal. Family at bedside. - Eye Pupils: Present: PERRL - ENT ENT exam: Present: mucous membranes dry - Expanded ENT Exam Teeth exam: Present: edentulous - Respiratory Respiratory exam: Absent: accessory muscle use, respiratory distress Additional comments: respirations shallow with a rate of 10/min. Periods of apnea. - Cardiovascular Cardiovascular exam: Present: RRR (apical rate 90) - GI/Abdominal Exam GI/Abdominal exam: Present: diminished bowel sounds, soft. Absent: tenderness - Rectal Rectal Exam: Present: deferred - Extremities Exam Extremities exam: Absent: normal inspection Additional comments: open wounds noted to lower extremities with dressing intact. - Neurological Exam Neurological exam: Absent: alert - Psychiatric Psychiatric exam: Present: agitated (at times) - Skin Skin exam: Present: dry, warm. Absent: mottled Additional comments: abrasions noted to bilateral lower extremities with weeping Palliative Quality Palliative Quality: Screen for Code Status: Yes, Screen for Goals of Care: Yes, Screen for Pain: Yes, If Pain Regimen Started, Initiate Bowel Regimen: Yes, Screen for Nausea/Vomitting: Yes
[2017-04-18] MEDS ORDERED: Acetaminophen 325 MG TABLET PO PRN (11:42)
[2017-04-18] MEDS ORDERED: Bisacodyl 10 MG RECTAL SUPPOSITORY RC PRN (11:42)
[2017-04-18] MEDS ORDERED: Ondansetron 4 MG/2 ML VIAL IVP PRN (11:42)
[2017-04-18] MEDS ORDERED: Atropine Sulfate 1% 40 DROP/2 ML BOTTLE SL PRN (11:42)
--- NOTE | 2017-04-18 12:50 | Pallative History & Physical ---
Date of Encounter: 04/18/17 Time of Encounter: 12:48 Assessment and Plan (1) Anxiety Current visit: No Status: Acute The patient has been responding very well to Ativan will continue to make this available. Continue to watch. (2) Goals of care, counseling/discussion Current visit: No Status: Acute Agent is now DNR comfort care, patient is under care of general inpatient [facility]. This is due to the amount of care the patient is requiring for comfort including every 8 hour catheterizations as well as an escalating need for medications secondary to his respiratory failure. (3) Pain Current visit: No Status: Acute (4) Acute respiratory failure with hypoxia Current visit: No Status: Acute Hospice admitting diagnosis. Patient will be given breathing treatments and oxygen comfort measures. Internal Medicine - H&P: HPI Admitted From: Intrahospital Transfer Plans for Post Hospital Care: Hospice - Home History of present illness: Mr. Alegria is a 81 year old male With a history of pneumonia and respiratory failure that have required mechanical ventilation. Passion based was done on 528 and the patient has continued to have a downward decline. Been shifted to entirely comfort care. He has required escalating doses of both oral morphine and lorazepam to maintain comfort. Patient cannot tolerate an indwelling Haney catheter and cannot void. Therefore he is requiring straight catheter every 8 hours. Unresponsive and not following commands. Also appears to be most 2 or actively dying at this time and this is not something that hospice can support at home adequately therefore the patient maintained on the [facility] service. Past Med Surg Social Fam HX - Past Medical History Medical history: asthma, CVA, hypertension, other (PN, Respiratory failure) Psychiatric history: no psych history - Past Surgical History Surgical History: other (lumbar x 2) - Social History Smoking Status: Current some day smoker Smokeless Tobacco Status: No Alcohol use: none Drug use: none Internal Medicine - H&P: Meds Aspirin 81 mg PO DAILY 02/27/17 [History] Losartan [Cozaar] 25 mg PO DAILY 02/27/17 [History] Propranolol HCl [Innopran Xl] 80 mg PO BID 02/27/17 [History] Simvastatin [Zocor] 40 mg PO HS 02/27/17 [History] hydrOXYzine HCl [Hydroxyzine HCl] 25 mg PO BID PRN 02/27/17 [History] Albuterol Neb [Proventil Neb] 2.5 mg IH TID PRN 03/16/17 [History] Docusate [Colace] 100 mg PO BID PRN 03/16/17 [History] Oxygen 1 each .ROUTE AD 03/16/17 [History] Furosemide [Lasix] 20 mg PO DAILY #30 tablet 03/18/17 [Rx] Torsemide [Demadex] 10 mg PO DAILY PRN 04/14/17 [History] Allergies chocolate flavor Allergy (Verified 04/14/17 10:35) Anaphylaxis egg Allergy (Verified 04/14/17 10:35) Anaphylaxis milk Allergy (Verified 04/14/17 10:35) Anaphylaxis Sulfa (Sulfonamide Antibiotics) Allergy (Verified 03/15/17 22:04) Hives ROS unobtainable: due to mental status Palliative Care-Exam - Constitutional General appearance: Present: no acute distress - Head Head Exam: Present: atraumatic, normal inspection - Eye Eye exam: Present: normal appearance - ENT ENT exam: Present: mucous membranes dry - Respiratory Respiratory exam: Present: decreased breath sounds (Slow respirations) - Cardiovascular Cardiovascular exam: Present: RRR - GI/Abdominal Exam GI/Abdominal exam: Present: diminished bowel sounds, soft. Absent: tenderness - Extremities Exam Extremities exam: Present: normal inspection. Absent: pedal edema, tenderness - Neurological Exam Neurological exam: Present: altered - Psychiatric Psychiatric exam: Absent: anxious, depressed - Skin Skin exam: Present: dry, warm Palliative Quality Palliative Quality: Screen for Code Status: Yes, Screen for Goals of Care: Yes, Screen for Pain: Yes, If Pain Regimen Started, Initiate Bowel Regimen: Yes, Screen for Nausea/Vomitting: Yes Code Status: 04/18/17 11:42 Resuscitation Status: Active [RES] Routine Comment: Resuscitation Status: DNR-Comfort Care
[2017-04-18] MEDS: Haloperidol Oral Conc 10 MG/5 ML UDC PO PRN (18:31)
[2017-04-18] MEDS: *HR* LORazepam Oral Conc 2 MG/ML PO PRN (18:54)
[2017-04-19] MEDS: *HR* LORazepam Oral Conc 2 MG/ML PO PRN ×4 (05:51→20:46)
[2017-04-19] MEDS: Haloperidol Oral Conc 10 MG/5 ML UDC PO PRN ×2 (06:29→10:34)
--- NOTE | 2017-04-19 10:51 | Palliative Progress Note ---
Date of Encounter: 04/19/17 Time of Encounter: 08:45 - Assessment and plan (1) Anxiety Current Visit: No Status: Acute Assessment and plan: The patient has been responding very well to Ativan will continue to make this available. Continue to watch. 1 dose last night to thus far today. Continue to watch continue current medications. She has also required increasing doses of Haldol for agitation (2) Goals of care, counseling/discussion Current Visit: No Status: Acute Assessment and plan: Agent is now DNR comfort care, patient is under care of general inpatient [facility]. This is due to the amount of care the patient is requiring for comfort including every 8 hour catheterizations as well as an escalating need for medications secondary to his respiratory failure. She continues to require fairly frequent doses of medication (3) Pain Current Visit: No Status: Acute Assessment and plan: This appears to be under control at this time the patient has required no pain medication since yesterday. (4) Acute respiratory failure with hypoxia Current Visit: No Status: Acute Assessment and plan: Hospice admitting diagnosis. Patient will be given breathing treatments and oxygen comfort measures. - Time Spent With Patient Total time spent is greater than 50% in coordination of care (as documented) at patient's floor/unit and/or counseling patient: - Subjective Interval history: Patient resting comfortably per family. - Constitutional General appearance: Present: no acute distress - Eye Eye exam: Present: normal appearance - Respiratory Respiratory exam: Present: decreased breath sounds (Slow, shallow, irregular respirations) - Cardiovascular Cardiovascular exam: Present: irregular rhythm - GI/Abdominal GI/Abdominal exam: Present: hypoactive bowel sounds, soft. Absent: tenderness - Extremities Exam Extremities exam: Absent: normal inspection (Appear to be excoriations are noted on the left leg and left foot) - Neurological Exam Neurological exam: Present: altered - Psychiatric Psychiatric exam: Absent: agitated, anxious - Skin Skin exam: Present: dry, warm (Abrasion versus excoriation on the left leg.) Palliative Quality Palliative Quality: Screen for Code Status: Yes, Screen for Goals of Care: Yes, Screen for Pain: Yes, If Pain Regimen Started, Initiate Bowel Regimen: Yes, Screen for Nausea/Vomitting: Yes Code Status: 04/18/17 11:42 Resuscitation Status: Active [RES] Routine Comment: Resuscitation Status: DNR-Comfort Care Consult Discharge Plan - Plan Referrals: NO,PCP [Primary Care Provider] -
[2017-04-19] MEDS: Morphine Oral CONC 5 MG/0.25 ML ORAL.SYG PO PRN ×2 (11:42→20:46)
[2017-04-20] MEDS: *HR* LORazepam Oral Conc 2 MG/ML PO PRN ×2 (06:41→11:07)
[2017-04-20 07:24] VITALS: BP 110/70
--- NOTE | 2017-04-20 09:15 | Discharge Summary ---
Date of Encounter: 04/20/17 Time of Encounter: 09:12 - Discharge Diagnosis (1) Acute and chronic respiratory failure Priority: Primary Status: Acute Qualifiers: Respiratory failure complication: hypercapnia Qualified Code(s): J96.22 - Acute and chronic respiratory failure with hypercapnia (2) Dyspnea and respiratory abnormalities Priority: Secondary Status: Chronic (3) Anxiety Priority: Secondary Status: Chronic (4) Pain Priority: Secondary Status: Acute (5) Goals of care, counseling/discussion Priority: Secondary Status: Acute - Discharge Medications Prescriptions: LORazepam Oral Conc [Ativan Oral Conc] 1 mg PO Q2HR PRN #15 mls PRN Reason: anxiety/agitation Hyoscyamine SL [Levsin SL] 0.125 mg SL Q4HR PRN #10 tab.subl PRN Reason: Secretions Bisacodyl [Dulcolax] 10 mg RC HS PRN #5 supp.rect PRN Reason: Constipation Haloperidol Oral Conc [Haldol] 2 mg PO Q6H PRN #10 mls PRN Reason: Agitation Morphine Oral CONC [Roxanol] 0.25 - 0.5 mg SL Q1H PRN #15 ml PRN Reason: pain or shortness of breath Home Medications: Oxygen 1 each .ROUTE AD 03/16/17 [History] Bisacodyl [Dulcolax] 10 mg RC HS PRN #5 supp.rect 04/20/17 [Rx] Haloperidol Oral Conc [Haldol] 2 mg PO Q6H PRN #10 mls 04/20/17 [Rx] Hyoscyamine SL [Levsin SL] 0.125 mg SL Q4HR PRN #10 tab.subl 04/20/17 [Rx] LORazepam Oral Conc [Ativan Oral Conc] 1 mg PO Q2HR PRN #15 mls 04/20/17 [Rx] Morphine Oral CONC [Roxanol] 0.25 - 0.5 mg SL Q1H PRN #15 ml 04/20/17 [Rx] Allergies/Adverse Reactions: Allergies chocolate flavor Allergy (Verified 04/14/17 10:35) Anaphylaxis egg Allergy (Verified 04/14/17 10:35) Anaphylaxis milk Allergy (Verified 04/14/17 10:35) Anaphylaxis Sulfa (Sulfonamide Antibiotics) Allergy (Verified 03/15/17 22:04) Hives Internal Medicine - DS: Prov Date of admission: 04/18/17 12:15 Primary care physician: PCP NO Admitting clinician: Paul Carballo Attending physician on admission: Paul Carballo Consults: 04/18/17 11:42 Consult to Palliative Care [CONS] Routine Comment: Consulting Provider: Palliative Care Denise Reason for Consult: Symptom Management Time Notified: 11:46 Call Completed: Yes Attending physician on discharge: Paul Carballo Discharging clinician: Josefina Iglesias Anticipated date of discharge: 04/20/17 - Patient Status Disposition: Hospice - Home Condition: Critical Functional capacity at discharge: bed bound Overall status at discharge: other (Patient is at end-of-life, spouse request transition home per patient's last known wishes) - Discharge Instructions Instructions: Acute Respiratory Distress Syndrome (DC) Follow Up With: NO,PCP [Primary Care Provider] - Additional Instructions: Routine home care with hospice services, dressing change to bilateral lower extremities daily and when necessary - Diet and Activity Activity: wear oxygen at all times Diet: other (As tolerated) - Hospital Course Hospital course: Mr. Alegria is a 81 year old male patient admitted under [facility] care for general inpatient hospice. Patient was admitted for intense symptom management related to acute on chronic respiratory failure, dyspnea, anxiety/agitation, pain, urinary retention. Medications were adjusted during inpatient stay. Mr. Alegria required intermittent straight catheter every 8 hours during hospitalization. He was unable to tolerate indwelling Haney catheter. Mr. Alegria is at end-of-life and unresponsive. His spouse, Leora, is requesting transport home per the patient's last known wishes. Spouse is aware of risk of transport causing increased distress. Mr. Alegria will be transported home via ambulance service, [facility] to follow upon discharge. - Time Spent with Patient Total time spent providing and/or coordinating discharge services: Less than 30 minutes Internal Medicine - DS: Exam - Constitutional Vitals: Vital Signs Temp Pulse Resp BP Pulse Ox 04/20/17 07:23 98.0 F 115 18 110/70 95 04/19/17 20:05 97.8 F 77 13 107/75 92 Intake and Output 04/19/17 04/20/17 04/20/17 23:59 07:59 15:59 Intake Total 0 / 0 Output Total 200 / 200 Balance 0 / 0 -200 / -200 Intake: Oral 0 / 0 Output: Straight Cath 200 / 200 Other: Meal NPO Percent of Meal Consumed 0% General appearance: no acute distress, no cooperative Additional comments: 81 year old male at end of life. He is unresponsive, but becomes agitated from time to time and responds well to medications and therapeutic touch. - Eye Pupils: Present: PERRL - ENT ENT exam: Present: mucous membranes dry - Respiratory Respiratory exam: Present: rhonchi (faint scattered rhonchi ). Absent: accessory muscle use, respiratory distress, tachypnea - Cardiovascular Cardiovascular exam: Present: irregular rhythm - GI/Abdominal GI/Abdominal exam: Present: hypoactive bowel sounds, soft. Absent: rigid - Extremities Exam Additional comments: weeping wounds noted to bilateral lower extremities - Neurological Exam Neurological exam: Absent: alert (unresponsive) - Psychiatric Psychiatric exam: Present: agitated (at times)
== END 2017-04-20 12:29 | disposition hospice, home (50) | DRG 189 ==
LOC: 2ANU 12:15
PROVIDERS: ADMIT Family Medicine Hospice and Palliative Medicine; ATTEND Family Medicine Hospice and Palliative Medicine